=== PATIENT | female | born 1965 | race Two or more races ===

== ENCOUNTER 2020-02-18 14:50 | Emergency (ER) | payer MEDICAID, SELFPAY ==
--- NOTE | 2020-02-18 15:07 | ED.HA ---
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 Limitations: no limitations History of Present Illness MD elicited complaint: headache and other (entire L side of body has parasthesias) Onset (ago): day(s) (3) Onset description: gradually Location: right, frontal and temporal Severity: moderate Quality & Timing: throbbing Exacerbating factors: none Relieving factors: nothing Context: occurred at rest Associated symptoms: tingling (L sided parasthesias) Treatments prior to arrival: none Related Data Allergies Allergy/AdvReac Type Severity Reaction Status Date / Time aspirin [ASA] Allergy Mild SWOLLEN Unverified 12/25/19 18:55 Review of Systems Review of Systems: Constitutional : No Fever, No Chills, No Fatigue ENT/Mouth : No sore throat, No Rhinorrhea Eyes: No Eye Pain, No Swelling, No Redness Cardiovascular : No Chest Pain, No SOB, No Dyspnea on Exertion Respiratory : No Cough, No Sputum Gastrointestinal : No Nausea, No Vomiting, No Diarrhea, No abdominal Pain Genitourinary : No Dysuria, No Urinary Frequency, No Hematuria, Musculoskeletal : No joint pain, No Myalgias, No Joint Swelling Skin : No Skin Lesions, No rash Neuro : No Weakness, No Numbness, No Dizziness, positive Headache Psych : No Anxiety/Panic, No Depression Heme/Lymph: No Bruising, No Bleeding,No Lymphadenopathy Endocrine : No Polyuria, No Polydipsia All other systems reviewed and are negative PMFSH Past Medical History Attestation statement: The following information was validated with the patient. Medical History HTN (hypertension) Social History Social History Alcohol intake: never Smoking Status: Never smoker Use of substances other than those prescribed or required for medical reasons: No Advance Directives: No Advance Directives Information Provided: Yes Physical Exam Vital Signs: Vital Signs: Last Vital Signs Temp 98 F 02/18/20 15:29 Pulse 96 02/18/20 15:29 Resp 16 02/18/20 15:29 BP 159/90 H 02/18/20 15:29 Pulse Ox 99 02/18/20 15:29 Body Mass Index 43.9 Appearance: Alert. Oriented X3. No acute distress. talking on phone smiling Eyes: Pupils equal, round and reactive to light. ENT: Pharynx normal. Neck: Normal inspection. Neck supple. CVS: Normal heart rate and rhythm. Pulses normal. Respiratory: No respiratory distress. Breath sounds normal. Abdomen: Soft and nontender. Skin: Skin warm and dry. Normal skin color. Normal skin turgor. Extremities: No lower extremity edema. No calf ttp Neuro: Oriented X 3. No motor deficit. reports feeling the L side of her body is more diminished to light touch. CN intact Course Course Course Narrative: signed out to Dr. Harry pending workup MDM - Headache MDM Narrative Medical decision making narrative: 54 yo female with HTN no AC therapy 3 days of headache and L sided parasthesias at this time will need labs, CT head, IV morphine for pain could be complex migraine, doubt ICH, dispo per results and findings. Lab Data Result diagrams: 02/18/20 16:13 02/18/20 16:13 Labs: Lab Results 02/18/20 Range/Units 16:13 Hold Blue Top SEE NOTE Discharge Plan Discharge Clinical Impression: Headache
[2020-02-18 15:27] VITALS: BP 159/90; PULSE 63; RESP 16; TEMP 36.6; O2SAT 99; BMI 43.9
[2020-02-18 15:29] VITALS: BP 159/90; PULSE 96; RESP 16; TEMP 36.6; O2SAT 99
--- NOTE | 2020-02-18 15:29 | ECG_ITS ---
Test Reason : HEADAHCE Blood Pressure : / mmHG Vent. Rate : 056 BPM Atrial Rate : 056 BPM P-R Int : 156 ms QRS Dur : 104 ms QT Int : 436 ms P-R-T Axes : 038 -33 012 degrees QTc Int : 420 ms Sinus bradycardia with sinus arrhythmia Left axis deviation Abnormal ECG No previous ECGs available Referred By: Erin Crews Electronically Signed By:NIKO PRADO MD
--- NOTE | 2020-02-18 15:30 | CT_ITS ---
EXAMINATION: CT HEAD WITHOUT CONTRAST CLINICAL INFORMATION: Left-sided paresthesias and headache COMPARISON: None TECHNIQUE: Contiguous axial imaging was performed from the skull base to vertex without intravenous administration of contrast. This CT examination was performed using dose optimization techniques as appropriate, variously including the following: *Automated exposure control *Adjustment of mA and/or kV according to patient size (this includes techniques or standardized protocols for targeted exams where dose is matched to indication/reason for exam; i.e. extremities or head) *Use of iterative reconstruction technique DLP: 845 mGy-cm FINDINGS: There is no evidence of acute intracranial hemorrhage or territorial infarction. No abnormal mass effect or midline shift is seen. Cervantes to white matter differentiation is well preserved. No extra-axial fluid collections are identified. The ventricles are normal in size. There is no abnormal attenuation within the brain parenchyma. The osseous structures and soft tissues are normal. There is a small polyp or cyst in the floor of the right maxillary sinus. The mastoid air cells and visualized portions of the paranasal sinuses are otherwise clear. CT/CT head/brain wo con IMPRESSION: No acute intracranial findings.
[2020-02-18] MEDS: ondansetron HCL 4 MG/2 ML VIAL IVPUSH (16:22)
[2020-02-18] MEDS: Morphine Sulfate 4 MG/ML CARTRIDGE IVPUSH (16:22)
[2020-02-18 16:27] LABS: MANUAL DIFF FLAG NO
[2020-02-18 16:32] LABS: Basophils Percent Auto 0.3 % (0-2); Eosinophils Absolute Auto 0.1 X10*3/uL (0.0-0.4); Eosinophils Percent Auto 1.2 % (0-4); Hematocrit 41.6 % (37-47); Imm Gran Abs Auto 0.04 X10*3/uL (0.00-0.03); Imm Gran Pct Auto 0.4 % (0.0-0.4); Lymphocytes Absolute Auto 3.4 X10*3/uL (1.2-4.9); Lymphocytes Percent Auto 34.7 % (20-40); Mean Corpuscular HGB Conc 31.3 g/dl (31.0-35.0); Mean Corpuscular Hemoglobin 29.6 pg (27.0-33.0); Mean Corpuscular Volume 94.8 fL (80-98); Mean Platelet Volume 9.5 fL (9.4-12.3); Monocytes Absolute Auto 0.6 X10*3/uL (0.1-1.2); Monocytes Percent Auto 6.3 % (2-11); Neutrophils Absolute Auto 5.7 X10*3/uL (2.0-8.3); Neutrophils Percent Auto 57.1 % (45-73); Platelet Count 278 X10*3/uL (160-400); Red Blood Count 4.39 X10*6/uL (4.20-5.50); White Blood Count 9.9 X10*3/uL (4.8-10.8)
[2020-02-18 17:04] LABS: Alanine Aminotransferase 16 U/L (0-31); Albumin Level 4.2 g/dL (3.5-5.0); Alkaline Phosphatase 102 U/L (39-117); Aspartate Amino Transferase 24 U/L (5-31); Bilirubin Direct < 0.2 mg/dL (0.0-0.5); Bilirubin Total 0.4 mg/dL (0.0-1.0); Magnesium 1.9 mg/dL (1.6-2.6); Total Protein 7.9 g/dL (6.5-8.0)
[2020-02-18 17:05] LABS: Anion Gap 16 (12-20); Blood Urea Nitrogen 12 mg/dL (9-16); Carbon Dioxide 28 mmol/L (22-29); Chloride 101 mmol/L (96-108); Creatinine Clr Calc Pharmacy 99.2; Estimated Glomerular Filt Rate > 60; Glucose Random 88 mg/dL (60-115); Potassium 3.9 mmol/l (3.3-5.1); Sodium 141 mmol/L (135-145)
[2020-02-18 18:00] VITALS: BP 146/79; PULSE 60; RESP 16; TEMP 36.3; O2SAT 99
--- NOTE | 2020-02-18 19:22 | ED_ITS ---
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 Limitations: no limitations Related Data Allergies Allergy/AdvReac Type Severity Reaction Status Date / Time aspirin [ASA] Allergy Mild SWOLLEN Unverified 12/25/19 18:55 [facility] Past Medical History Medical History HTN (hypertension) Social History Social History Alcohol intake: never Smoking Status: Never smoker Use of substances other than those prescribed or required for medical reasons: No Advance Directives: No Advance Directives Information Provided: Yes Physical Exam Vital Signs: Vital Signs: Last Vital Signs Temp 97.4 F 02/18/20 18:00 Pulse 60 02/18/20 18:00 Resp 16 02/18/20 18:00 BP 146/79 H 02/18/20 18:00 Pulse Ox 99 02/18/20 18:00 Body Mass Index 43.9 Medical Decision Making [facility] Narrative Medical decision making narrative: Patient well appearing no acute distress. Neurologically intact. ambulate with normal gait. Patient was able to use her left hand to text her family. No distress. Finger to nose completely intact. Negative Romberg. Will discharge patient home. CT scan of the head was grossly negative. NIH stroke scale was 0. Lab Data Result diagrams: 02/18/20 16:13 02/18/20 16:13 Labs: Lab Results 02/18/20 02/18/20 02/18/20 Range/Units 16:13 16:13 16:13 WBC 9.9 (4.8-10.8) X10*3/uL RBC 4.39 (4.20-5.50) X10*6/uL Hgb 13.0 (12.0-16.0) g/dl Hct 41.6 (37-47) % MCV 94.8 (80-98) fL MCH 29.6 (27.0-33.0) pg MCHC 31.3 (31.0-35.0) g/dl RDW 13.0 (11.0-16.0) % Plt Count 278 (160-400) X10*3/uL MPV 9.5 (9.4-12.3) fL Immature Gran % (Auto) 0.4 (0.0-0.4) % Neut % (Auto) 57.1 (45-73) % Lymph % (Auto) 34.7 (20-40) % [place] % (Auto) 6.3 (2-11) % Eos % (Auto) 1.2 (0-4) % Baso % (Auto) 0.3 (0-2) % Lymph # (Auto) 3.4 (1.2-4.9) X10*3/uL [place] # (Auto) 0.6 (0.1-1.2) X10*3/uL Eos # (Auto) 0.1 (0.0-0.4) X10*3/uL Baso # (Auto) 0.0 (0.0-0.2) X10*3/uL Abs Immat Gran (auto) 0.04 H (0.00-0.03) X10*3/uL Absolute Neuts (auto) 5.7 (2.0-8.3) X10*3/uL Absolute Nucleated RBC 0.000 (0.0-0.012) X10*3/uL Nucleated RBC % (auto) 0.0 (0.0-0.2) /100WBC Hold Blue Top SEE NOTE Sodium 141 (135-145) mmol/L Potassium 3.9 (3.3-5.1) mmol/l Chloride 101 (96-108) mmol/L Carbon Dioxide 28 (22-29) mmol/L Anion Gap 16 (12-20) BUN 12 (9-16) mg/dL Creatinine 0.90 (0.5-1.4) mg/dL Estim Creat Clear Calc 99.2 Estimated GFR > 60 Random Glucose 88 (60-115) mg/dL Calcium 9.0 (8.4-10.2) mg/dL Magnesium (1.6-2.6) mg/dL Total Bilirubin (0.0-1.0) mg/dL Direct Bilirubin (0.0-0.5) mg/dL AST (5-31) U/L ALT (0-31) U/L Alkaline Phosphatase (39-117) U/L Total Protein (6.5-8.0) g/dL Albumin (3.5-5.0) g/dL 02/18/20 Range/Units 16:13 WBC (4.8-10.8) X10*3/uL RBC (4.20-5.50) X10*6/uL Hgb (12.0-16.0) g/dl Hct (37-47) % MCV (80-98) fL MCH (27.0-33.0) pg MCHC (31.0-35.0) g/dl RDW (11.0-16.0) % Plt Count (160-400) X10*3/uL MPV (9.4-12.3) fL Immature Gran % (Auto) (0.0-0.4) % Neut % (Auto) (45-73) % Lymph % (Auto) (20-40) % [place] % (Auto) (2-11) % Eos % (Auto) (0-4) % Baso % (Auto) (0-2) % Lymph # (Auto) (1.2-4.9) X10*3/uL [place] # (Auto) (0.1-1.2) X10*3/uL Eos # (Auto) (0.0-0.4) X10*3/uL Baso # (Auto) (0.0-0.2) X10*3/uL Abs Immat Gran (auto) (0.00-0.03) X10*3/uL Absolute Neuts (auto) (2.0-8.3) X10*3/uL Absolute Nucleated RBC (0.0-0.012) X10*3/uL Nucleated RBC % (auto) (0.0-0.2) /100WBC Hold Blue Top Sodium (135-145) mmol/L Potassium (3.3-5.1) mmol/l Chloride (96-108) mmol/L Carbon Dioxide (22-29) mmol/L Anion Gap (12-20) BUN (9-16) mg/dL Creatinine (0.5-1.4) mg/dL Estim Creat Clear Calc Estimated GFR Random Glucose (60-115) mg/dL Calcium (8.4-10.2) mg/dL Magnesium 1.9 (1.6-2.6) mg/dL Total Bilirubin 0.4 (0.0-1.0) mg/dL Direct Bilirubin < 0.2 (0.0-0.5) mg/dL AST 24 (5-31) U/L ALT 16 (0-31) U/L Alkaline Phosphatase 102 (39-117) U/L Total Protein 7.9 (6.5-8.0) g/dL Albumin 4.2 (3.5-5.0) g/dL Discharge Plan Discharge Clinical Impression: Headache Qualifiers: Headache type: unspecified Headache chronicity pattern: acute headache Intractability: not intractable Qualified Code(s): R51.9 - Headache, unspecified Patient Disposition: Home, Self-Care Instructions: Paresthesia (ED) Referrals: Carlene Aggarwal MD [Primary Care Provider] - 2 days Print Language: Maltese
== END 2020-02-18 20:20 | disposition home or self-care (01) ==
PROVIDERS: Emergency Medicine; Emergency Provider Emergency Medicine Emergency Medical Services; PCP Internal Medicine
DX: R51.9 Headache, unspecified (principal)
CPT/HCPCS: 36415; 70450; 80048; 80076; 83735; 85025; 93005; 96374; 96375; 99284; J2270; J2405

== ENCOUNTER 2021-09-29 11:00 | Outpatient (REF) | payer MEDICAID, SELFPAY ==
--- NOTE | ~2021-09-29 | MM_ITS ---
EXAMINATION: MM SCREENING DIGITAL BREAST TOMOSYNTHESIS, BILATERAL CLINICAL INFORMATION: Screening. Asymptomatic. The lifetime risk of breast cancer based on the Tyrer-Cuzick Model is 6.7%. COMPARISON: Mammography: August 20, 2017 and September 13, 2015 TECHNIQUE: Digital breast tomosynthesis is performed in both the craniocaudal and mediolateral oblique views along with computer-aided detection (CAD). Synthesized 2D images are generated from the tomosynthesis. FINDINGS: There are scattered areas of fibroglandular density (ACR BI-RADS breast composition Category b). There are no significant masses, abnormal calcifications, or other abnormalities. MM/MM tomosynthesis screening BI IMPRESSION: There are no significant changes from prior study. ASSESSMENT: BI-RADS 1: Negative RECOMMENDATION: Routine annual mammography screening. This patient's information was entered into a reminder system with a target due date for their next mammogram.
== END 2021-09-29 11:01 | disposition home or self-care (01) ==
LOC: HO.MAMMO 11:00
PROVIDERS: PCP Internal Medicine; Visit Provider Internal Medicine
DX: Z12.31 Encounter for screening mammogram for malignant neoplasm of breast (principal)
CPT/HCPCS: 77063; 77067

== ENCOUNTER 2021-10-06 12:21 | Outpatient (REF) | payer MEDICAID, SELFPAY ==
--- NOTE | ~2021-10-06 | XR_ITS ---
EXAMINATION: XR KNEES, STANDING AP XR KNEE, RIGHT XR KNEE, LEFT CLINICAL INFORMATION: Knee pain COMPARISON: Outside radiographs bilateral knees 11/01/2020 ([facility]) TECHNIQUE: Standing AP view of both knees is performed. Each knee is also imaged in lateral and axial patella views. FINDINGS: Right: There is moderate tricompartment osteoarthritis, greatest medial compartment with secondary genu varus. There are moderate osteophytes medial and lateral femoral condyles and tibial plateau and superior lateral patella. No destructive process, fracture, dislocation. No definite suprapatellar effusion. There is spurring at the quadriceps insertion patella. Hoffa's fat pad unremarkable. Borderline lateral patellar tilt without lateralization. Left: There is moderate tricompartment osteoarthritis, greatest medial compartment with secondary genu varus. There are moderate osteophytes medial and lateral femoral condyles and tibial plateau and lateral patella. There is a small benign rectangular exostosis of the superior aspect medial femoral condyle similar to outside exam. No soft tissue mineralization. No periostitis. No destructive process, fracture, dislocation. No suprapatellar effusion. There is spurring at the quadriceps insertion patella. Hoffa's fat pad unremarkable. Borderline lateral patellar tilt without lateralization. 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 -No definite suprapatellar effusion. No erosive changes. -Borderline lateral tilting bilateral patella.
--- NOTE | ~2021-10-06 | XR_ITS ---
EXAMINATION: XR KNEES, STANDING AP XR KNEE, RIGHT XR KNEE, LEFT CLINICAL INFORMATION: Knee pain COMPARISON: Outside radiographs bilateral knees 11/01/2020 ([facility]) TECHNIQUE: Standing AP view of both knees is performed. Each knee is also imaged in lateral and axial patella views. FINDINGS: Right: There is moderate tricompartment osteoarthritis, greatest medial compartment with secondary genu varus. There are moderate osteophytes medial and lateral femoral condyles and tibial plateau and superior lateral patella. No destructive process, fracture, dislocation. No definite suprapatellar effusion. There is spurring at the quadriceps insertion patella. Hoffa's fat pad unremarkable. Borderline lateral patellar tilt without lateralization. Left: There is moderate tricompartment osteoarthritis, greatest medial compartment with secondary genu varus. There are moderate osteophytes medial and lateral femoral condyles and tibial plateau and lateral patella. There is a small benign rectangular exostosis of the superior aspect medial femoral condyle similar to outside exam. No soft tissue mineralization. No periostitis. No destructive process, fracture, dislocation. No suprapatellar effusion. There is spurring at the quadriceps insertion patella. Hoffa's fat pad unremarkable. Borderline lateral patellar tilt without lateralization. 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 -No definite suprapatellar effusion. No erosive changes. -Borderline lateral tilting bilateral patella.
--- NOTE | ~2021-10-06 | XR_ITS ---
EXAMINATION: XR KNEES, STANDING AP XR KNEE, RIGHT XR KNEE, LEFT CLINICAL INFORMATION: Knee pain COMPARISON: Outside radiographs bilateral knees 11/01/2020 ([facility]) TECHNIQUE: Standing AP view of both knees is performed. Each knee is also imaged in lateral and axial patella views. FINDINGS: Right: There is moderate tricompartment osteoarthritis, greatest medial compartment with secondary genu varus. There are moderate osteophytes medial and lateral femoral condyles and tibial plateau and superior lateral patella. No destructive process, fracture, dislocation. No definite suprapatellar effusion. There is spurring at the quadriceps insertion patella. Hoffa's fat pad unremarkable. Borderline lateral patellar tilt without lateralization. Left: There is moderate tricompartment osteoarthritis, greatest medial compartment with secondary genu varus. There are moderate osteophytes medial and lateral femoral condyles and tibial plateau and lateral patella. There is a small benign rectangular exostosis of the superior aspect medial femoral condyle similar to outside exam. No soft tissue mineralization. No periostitis. No destructive process, fracture, dislocation. No suprapatellar effusion. There is spurring at the quadriceps insertion patella. Hoffa's fat pad unremarkable. Borderline lateral patellar tilt without lateralization. 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 -No definite suprapatellar effusion. No erosive changes. -Borderline lateral tilting bilateral patella.
== END 2021-10-06 12:22 | disposition home or self-care (01) ==
LOC: HO.HOSX 12:21
PROVIDERS: Visit Provider Orthopaedic Surgery
DX: M25.561 Pain in right knee (principal); M25.562 Pain in left knee; M17.0 Bilateral primary osteoarthritis of knee
CPT/HCPCS: 73560; 73565; 99202

== ENCOUNTER → 2022-04-18 15:01 | Outpatient (BNVA) | payer MEDICAID, SELFPAY | PROVIDERS: PCP Internal Medicine; Visit Provider Surgery Vascular Surgery | DX: I83.11 Varicose veins of right lower extremity with inflammation (principal) | CPT/HCPCS: 99212 ==

== ENCOUNTER 2022-05-12 12:41 | Outpatient (REF) | payer MEDICAID, SELFPAY ==
--- NOTE | ~2022-05-12 | US_ITS ---
EXAMINATION: US VENOUS BILATERAL LOWER EXTREMITIES (REFLUX EXAM) CLINICAL INDICATION: Leg pain and varicose veins. COMPARISON: None TECHNIQUE: Color flow triplex imaging and compression Doppler was performed to evaluate both the deep and the superficial systems bilaterally. To evaluate the superficial system, the examination was performed in the upright position. Color-flow Doppler ultrasound and compression ultrasound were utilized. In addition, maneuvers were utilized to demonstrate reflux. FINDINGS: 1. DEEP VENOUS ULTRASOUND OF THE RIGHT LOWER EXTREMITY: Respiratory variation, normal compression and augmented flow are noted in the right common femoral vein as well as the right popliteal vein and there is no evidence of deep venous thrombosis at these locations. There is no evidence of reflux in the deep system in either the common femoral vein or the popliteal vein. There is no evidence of a Elise's cyst. 2. SUPERFICIAL ULTRASOUND WITH DOPPLER OF RIGHT LOWER EXTREMITY: The right great saphenous vein at the saphenofemoral junction measures 8 mm, at the proximal thigh 10 mm, at the mid thigh 4 mm, above the knee 4 mm, at the knee 3 mm, [id number] 3 mm, midcalf 2 mm and at the ankle measures 2 mm. Reflux is present in the right great saphenous vein from [id number] to [id number] with reflux times as great as 0.9 seconds. The great saphenous vein is duplicated around the level of the knee measuring about 5 mm in diameter. Duplicated Right Great Saphenous Vein: The great saphenous vein is partially duplicated with a lateral branch measuring 3 mm without reflux. The right small saphenous vein measures 2 mm and shows no reflux. Accessory Vein of Giacomini: None Incompetent Perforators: None Varices Present: Varicosities measuring 0.2 cm in the distal thigh are noted. 3. DEEP VENOUS ULTRASOUND OF THE LEFT LOWER EXTREMITY: Respiratory variation, normal compression and augmented flow are noted in the left common femoral vein as well as the left popliteal vein and there is no evidence of deep venous thrombosis at these locations. There is no evidence of reflux in the deep system in either the common femoral vein or the popliteal vein. There is no evidence of a Elise's cyst. 4. SUPERFICIAL ULTRASOUND WITH DOPPLER OF LEFT LOWER EXTREMITY: Left great saphenous vein at the saphenofemoral junction measures 8 mm, at the proximal thigh 7 mm, at the mid thigh 3 mm, above the knee 3 mm, at the knee 3 mm, [id number] 3 mm, midcalf 2 mm and at the ankle measures 2 mm. 0.9 seconds of reflux is present below the knee. Duplicated Left Great Saphenous Vein: There is a 4 mm lateral accessory saphenous that does not reflux. The left small saphenous vein measures 2 mm and shows no reflux. Accessory Vein of Giacomini: None Incompetent Perforators: None. Varices Present: 0.4 cm diameter varices are noted in the proximal thigh. US/US venous duplex LE BI IMPRESSION: 1. No evidence of reflux or thrombus in the deep venous systems bilaterally. 2. Reflux in the right great saphenous vein from [id number] to below the knee. 3. Reflux in the left great saphenous vein below the knee.
== END 2022-05-12 12:42 | disposition home or self-care (01) ==
LOC: HO.US 12:41
PROVIDERS: PCP Internal Medicine; Visit Provider Surgery Vascular Surgery
DX: I83.893 Varicose veins of bilateral lower extremities with other complications (principal)
CPT/HCPCS: 93970

== ENCOUNTER → 2022-06-01 13:29 | Outpatient (BNVA) | payer MEDICAID, SELFPAY | PROVIDERS: PCP Internal Medicine; Visit Provider Surgery Vascular Surgery | DX: I83.11 Varicose veins of right lower extremity with inflammation (principal); I89.0 Lymphedema, not elsewhere classified | CPT/HCPCS: 99212 ==

== ENCOUNTER 2022-08-31 10:52 | Outpatient (REF) | payer MEDICAID, SELFPAY ==
[2022-09-06 21:14] LABS: HPV mRNA E6/E7 rflx Not Detected (Not Detected)
== END 2022-08-31 10:53 | disposition home or self-care (01) ==
LOC: HO.LNP 10:52
PROVIDERS: PCP Internal Medicine; Visit Provider Obstetrics & Gynecology
DX: Z01.419 Encounter for gynecological examination (general) (routine) without abnormal findings (principal); Z11.51 Encounter for screening for human papillomavirus (HPV); R31.29 Other microscopic hematuria
CPT/HCPCS: 87086; 87624; 88142

== ENCOUNTER → 2022-09-21 12:21 | Outpatient (BNVA) | payer MEDICAID, SELFPAY | PROVIDERS: PCP Internal Medicine; Visit Provider Obstetrics & Gynecology | DX: R31.29 Other microscopic hematuria (principal) | CPT/HCPCS: 81003; 99212 ==

== ENCOUNTER 2022-10-30 10:02 | Outpatient (REF) | payer MEDICAID, SELFPAY ==
[2022-10-30 16:59] LABS: Urine Cytology See Pathology rpt
== END 2022-10-30 10:03 | disposition home or self-care (01) ==
LOC: HO.LNP 10:02
PROVIDERS: PCP Internal Medicine; Visit Provider Nurse Practitioner Family
DX: R31.29 Other microscopic hematuria (principal)
CPT/HCPCS: 88112; 99203

== ENCOUNTER 2022-10-30 10:02 | Outpatient (AMB) | payer MEDICAID, SELFPAY ==
--- NOTE | 2022-10-30 10:08 | MHC.OFFVIS ---
Intake Intake Visit Reasons: microscopic hematuria Intake Note: New Patient presents for micro hematuria Urology Medications: none Blood Thinner: none smoker: no, quit 12yrs ago Full Stack Software Developer Required: No Accompanied by: Self / Same As Patient Allergies aspirin [ASA] Allergy (Mild, Verified 10/30/22 11:37) SWOLLEN Medication List - Last Reconciled 10/30/22 by LONA Abarca albuterol sulfate 90 mcg/actuation (ProAir HFA) 2 puffs PO Q4-6H PRN chlorthalidone 50 mg PO DAILY ustekinumab (Stelara) 90 mg subcut Q12W HPI HPI Comments History of Present Illness Details Rika is a very pleasant 57-year-old female patient of Dr. Kiki Quintana. She has a past medical history of hypertension, edema, and osteoarthritis of bilateral knees. She presents to the office today as a new patient for microscopic hematuria. In discussion with the patient today she reports to be doing and feeling well. She reports previously following up with her PCP for annual appointment at which time she was noted to have microscopic hematuria in given her history of nicotine dependence was referred here for further assessment evaluation. When asked patient reports have quit smoking approximately 12 years ago. However reports to have smoked approximately 2 packs of cigarettes per day since the early age of 88 years old until she was 45 years old. She otherwise denies any known previous chemical exposure. When asked she does report very infrequent episodes of abdominal pressure. He otherwise denies denies urinary urgency, urinary frequency, incontinence, nocturia, hematuria, dysuria, foul smelling urine, changes to urinary stream, flank pain, fever, and or chills. She is happy with her current voiding parameters. She denies any previous history of nephrolithiasis. Discussed at length potential causes for microscopic hematuria. Discussed surveillance monitoring verses further microscopic hematuria workup to include urine cytology, CT urogram, and in office cystoscopy for further assessment evaluation. Risks and benefits of surveillance monitoring verses further microscopic hematuria workup discussed at length. She otherwise offers no issues or concerns at this time. In office urinalysis results reviewed with the patient today. PFSH Medical History ASCUS of cervix with negative high risk HPV HTN (hypertension) Family History Maternal Aunt Cervical cancer Maternal Aunt Cervical cancer Mother Cervical cancer Brother Prostate cancer Social History Alcohol intake: never Patient Tobacco Use Status: Former Tobacco user Quit Date: 2010 Current occupational status: unemployed Female Reproductive History Menstrual Age of Menarche: 5 Review of Systems Eyes Reports no additional complaints ENT Reports no additional complaints Card Reports as per HPI Resp Reports no additional complaints GI Reports no additional complaints Reports as per HPI Musc Reports as per HPI Neuro Reports no additional complaints Psych Reports no additional complaints Endo Reports no additional complaints Jeffery/Lymph Reports no additional complaints Aller/Immun Reports no additional complaints Physical Exam Const General: cooperative, healthy appearing, comfortable, no acute distress, well developed, alert and awake Nutritional Appearance: overweight Orientation/consciousness: patient oriented x3 Limitations: ambulation with cane HEENT Head: Yes normal to inspection, Yes normocephalic and Yes atraumatic Ears: hearing grossly normal bilaterally Eyes General: appearance normal, both eyes and all related structures Neck Neck: Yes normal visual inspection and Yes trachea midline Chest Chest palpation & inspection: normal inspection of the chest Resp Effort & Inspection: normal respiratory effort and able to speak in complete sentences Cardio Rate: regular rate GI Inspection: Yes normal to inspection General: Yes no CVA tenderness Back/Spine/Pelvis Back: no CVA tenderness Skin General skin exam: no rashes or lesions noted Neuro General: patient oriented x3 Extrem General: Yes normal to inspection Psych Appearance: grossly normal and well kempt Mental Status: mental status grossly normal Speech and movement: Normal speech and movement present and Clear speech present Affect: normal affect Attitude: cooperative Thought process: Normal thought process present Thought content: Normal thought content present Insight: Fair insight present (Psych) Judgement: Fair judgement present (Psych) Results AMB Urinalysis, Automated UA Leukoctes 0 Denia/uL Last Edit by Emory Valdovinos on 10/30/22 10:24 UA Nitrite Last Edit by Emory Valdovinos on 10/30/22 10:24 UA Urobilinogen 0.2 mg/dL Last Edit by Emory Valdovinos on 10/30/22 10:24 UA Protein 30 mg/dL Last Edit by Emory Valdovinos on 10/30/22 10:24 UA pH 6.0 Last Edit by Emory Valdovinos on 10/30/22 10:24 UA Blood 25 Benito/uL Last Edit by Emory Valdovinos on 10/30/22 10:24 UA Specific [place] 1.030 Last Edit by Emory Valdovinos on 10/30/22 10:24 UA Ketone Last Edit by Emory Valdovinos on 10/30/22 10:24 UA Bilirubin 1 mg/dL Last Edit by Emory Valdovinos on 10/30/22 10:24 UA Glucose 0 mg/dL Last Edit by Emory Valdovinos on 10/30/22 10:24 Results Reviewed Results Reviewed: Laboratory Last Values Urine pH (Auto) 6.0 10/30/22 10:17 Specific [place] (Auto) 1.030 10/30/22 10:17 Urine Protein (Auto) 30 mg/dL 10/30/22 10:17 Glucose (UA)(Auto) 0 mg/dL 10/30/22 10:17 Urine Blood (Auto) 25 Benito/uL 10/30/22 10:17 Urine Bilirubin (Auto) 1 mg/dL 10/30/22 10:17 Urine Urobilinogen (Auto) 0.2 mg/dL 10/30/22 10:17 Leukocyte Esterase (Auto) 0 Denia/uL 10/30/22 10:17 Assessment & Plan Assessment & Plan (1) Microscopic hematuria: Code(s): R31.29 - Other microscopic hematuria Plan In office urinalysis results reviewed with the patient today; as noted above; will send for urine cytology Patient with previous nicotine dependence for approximately 35 years however quit 12 years ago. Discussed at length surveillance monitoring verses further microscopic hematuria workup; discussed risks and benefits of surveillance monitoring verses further workup Will obtain CT urogram for further assessment evaluation Patient reports be happy with current voiding parameters Discussed at length potential causes for microscopic hematuria Educated, encouraged, and instructed on the importance of drinking plenty of water daily. Follow up in office cystoscopy with imaging to be completed prior; or sooner with any issues, concerns, and or questions Orders: Orders Urine Cytology Today R31.29 - Other microscopic hematuria CT urogram Today R31.29 - Other microscopic hematuria Blood Urea Nitrogen Today R39.15 - Urgency of urination Creatinine Today R39.15 - Urgency of urination AMB Urinalysis Automated Today Z13.9 - Encounter for screening, unspecified Patient Instructions: The patient had an opportunity to ask questions regarding the treatment plan. All questions were answered. Physical exam, labs, and imaging were discussed and reviewed in detail. As well as risks, benefits, and discussion of treatment choices. No major barriers to understanding were identified. The patient expressed understanding and agreement with the above treatment plan. The patient was made aware they should contact our office by phone for worsening of their current condition, the appearance of new symptoms, or with any questions or concerns. Compliance is encouraged with any medications and follow up testing that is ordered. It is a privilege to be allowed the opportunity to participate in? your urological care.? Again, if you have any questions or concerns If you have any questions or concerns please do not hesitate to contact me. The office is [phone]. This note is constructed using voice recognition software. While every effort has been made to ensure accuracy purse framer errors may have been included. Yours sincerely, LNOA Abarca Coding Level of Care Code New Pt Level 3 (22587) Diagnoses Microscopic hematuria R31.29
== END 2022-10-30 10:33 | disposition home or self-care (01) ==
PROVIDERS: PCP Internal Medicine; Visit Provider Nurse Practitioner Family
DX: R31.29 Other microscopic hematuria (principal)
CPT/HCPCS: 99203

== ENCOUNTER 2022-11-03 12:04 | Outpatient (REF) | payer MEDICAID, SELFPAY ==
[2022-11-03 13:20] LABS: Blood Urea Nitrogen 10 mg/dL (9-16); Estimated Glomerular Filt Rate > 60
== END 2022-11-03 12:05 | disposition home or self-care (01) ==
LOC: HO.LAB 12:04
PROVIDERS: PCP Internal Medicine; Visit Provider Nurse Practitioner Family
DX: R39.15 Urgency of urination (principal)
CPT/HCPCS: 36415; 82565; 84520

== ENCOUNTER 2022-11-27 10:00 | Outpatient (REF) | payer MEDICAID, SELFPAY ==
--- NOTE | ~2022-11-27 | CT_ITS ---
EXAMINATION: CT ABDOMEN AND PELVIS WITHOUT AND WITH CONTRAST CLINICAL INFORMATION: Microscopic hematuria COMPARISON: None available. TECHNIQUE: Noncontrast CT of the abdomen and pelvis is performed followed by split bolus contrast-enhanced images using 85 mL Omnipaque 350 contrast.? Postcontrast imaging is performed during the combined nephrogram and excretion phase. Sagittal and coronal reformatted images were obtained on the technologist's workstation for both the precontrast and postcontrast phases. This CT examination was performed using dose optimization techniques as appropriate, variously including the following: *Automated exposure control *Adjustment of mA and/or kV according to patient size (this includes techniques or standardized protocols for targeted exams where dose is matched to indication/reason for exam; i.e. extremities or head) *Use of iterative reconstruction technique DLP: 1337 mGy-cm FINDINGS: SITE PHYSICIAN: Nonobstructive bowel pattern. LUNG BASES: Heart size within normal limits. No pericardial effusion. Right lower lobe atelectasis. LIVER, GALLBLADDER, AND BILIARY TREE: The diffuse hypoattenuation to the liver parenchyma resistive focal fatty sparing at gallbladder fossa. No focal hepatic lesion or biliary ductal dilatation is present. The gallbladder is unremarkable with no evidence of radiopaque gallstones, gallbladder wall thickening, or obvious pericholecystic inflammatory changes. PANCREAS: Unremarkable. SPLEEN: Unremarkable. ADRENAL GLANDS: 2.1 cm left lipid rich adenoma. KIDNEYS AND URETERS: The right kidney measures 11.9 cm in longest sagittal projection, left kidney measures 10.3 cm. No renal, ureteral or bladder calculi. No hydroureteronephrosis. No perinephric stranding. No filling defects identified in the intrarenal collecting systems or tortuous contrast-filled ureters. BLADDER: Inferior aspect of the urinary bladder is mildly irregular. GASTROINTESTINAL TRACT: Decompressed stomach. Nonobstructive bowel pattern. Unremarkable terminal ileum and appendix. Diverticulosis without diverticulitis. ABDOMINAL WALL: No significant hernia is appreciated. LYMPH NODES: Normal. VASCULAR: Unremarkable. PELVIC VISCERA: Unremarkable. OSSEUS STRUCTURES: Symphysis pubis sclerosis. Mild anterolisthesis L4 on L5. L5-S1 disc space narrowing. CT/CT urogram IMPRESSION: Mildly irregular inferior urinary bladder wall, possible cystitis. Correlate with urinalysis. Diverticulosis without diverticulitis. Hepatic steatosis.
[2022-11-27] MEDS: iohexoL 350 MG/ML 100 ML INFUS..BTL 85 ML IV (12:17)
== END 2022-11-27 10:01 | disposition home or self-care (01) ==
LOC: HO.CT 10:00
PROVIDERS: PCP Internal Medicine; Visit Provider Nurse Practitioner Family
DX: R31.29 Other microscopic hematuria (principal)
CPT/HCPCS: 74178; Q9967

== ENCOUNTER 2022-12-06 10:12 | Outpatient (AMB) | payer MEDICAID, SELFPAY ==
--- NOTE | 2022-12-06 04:49 | MHC.OFFVIS ---
Intake Intake Visit Reasons: cysto/CT Intake Note: Patient presents today for a CYSTOSCOPY Procedure/CT Completed on 11/27/2022 Meds: None Allergies to Antibiotic: No Known Allergies Blood Thinner: None Urinalysis test cleared for Cysto Disposable Uro-G Cystoscope Cannula: Lot: [id number] Exp: 08/16/2024 Senior Program Planner Required: No Accompanied by: Self / Same As Patient Allergies aspirin [ASA] Allergy (Mild, Verified 12/06/22 10:21) SWOLLEN HPI HPI Comments History of Present Illness Details Rika is a 57-year-old female who presents today to the office for a follow-up. 12/06/2022? Rika is followed today for a cystoscopy procedure. She has a past medical history of hypertension, edema, and osteoarthritis of bilateral knees. She has seen Nurse Practitioner Abdulaziz Longoria on 10/30/2022 for microscopic hematuria. The patient was instructed on the importance of drinking plenty of water daily at that time. CT urogram was ordered for further assessment evaluation, and she was advised to follow up in office cystoscopy with imaging to be completed prior. I have reviewed the CT urogram results from 11/27/2022 revealed mildly irregular inferior urinary bladder wall, possible cystitis. She has a history of cigarette smoking. She states that she has quit smoking 12 years ago. She states that she needs to push for emptying the bladder. She denies any recent urinary tract infections. She complains of urinary hesitency and feeling like she has to push to empty her bladder when urinating. Consent was obtained to perform cystoscopy procedure. Cystoscopy findings: Thickening of the bladder wall, no suspicious bladder lesions noted. Evaluation today--UA-- bladder scan PVR: 0 mL. Plan: alfusozin 10 mg daily was ordered. Follow up in 3 months. PFSH Medical History ASCUS of cervix with negative high risk HPV HTN (hypertension) Surgical History Hx of cystoscopy Family History Maternal Aunt Cervical cancer Maternal Aunt Cervical cancer Mother Cervical cancer Brother Prostate cancer Social History Alcohol intake: never Patient Tobacco Use Status: Former Tobacco user Quit Date: 2010 Current occupational status: unemployed Female Reproductive History Menstrual Age of Menarche: 5 Review of Systems Eyes Reports no additional complaints ENT Reports no additional complaints Card Reports as per HPI Resp Reports no additional complaints GI Reports no additional complaints Reports as per HPI Musc Reports as per HPI Neuro Reports no additional complaints Psych Reports no additional complaints Endo Reports no additional complaints Jeffery/Lymph Reports no additional complaints Aller/Immun Reports no additional complaints Office Procedures Cystoscopy Consent Discussed risk and benefit or proposed procedure with the patient. Information consent for procedure given to the patient. Discussed technical aspects, risks, benefits and alternatives in full. Addressed all of the patient's questions and concerns regarding the procedure. The patient demonstrated knowledge and understanding. They wish to proceed with this procedure. Preparation The patient was prepped in the usual manner. A heater installer was present and in the room. Genitalia was prepped with betadine solution in a sterile manner. Lidocaine Jelly 2% was placed into the urethra and 16Fr flexible Olympus cystoscope was inserted into the meatus after adequate lubrication. Procedure Time out per protocol performed. Bladder Inspection Bladder Inspection: The bladder was inspected in its entirety with utilization retroflexion displaying: Tumor(s): none visualized Trabeculation: mild to moderate Mucosal Erthema: N/A Orifices: normal shape and position Urethra: normal Cystoscopy findings: no suspicious bladder lesions visualized [id number] DISPOSABLE SCOPE URO-G FLEXIBLE SCOPE Procedure code (CPT) selection complete Office Meds lidocaine HCl 2 % mucosal jelly in applicator Performing Provider: Ana Ríos MD Performing Location: [facility] [place] [facility] Administered by: Kerry Alexis RN on 12/06/22 10:51 Dose Route Admin Location Dispensed Lot Number Expiration Date [facility] Social Work Program Coordinator 10 mL intra-urethral 20 mL naproxen 500 mg tablet Performing Provider: Ana Ríos MD Performing Location: [facility] [place] [facility] Administered by: Kerry Alexis RN on 12/06/22 10:51 Dose Route Admin Location Dispensed Lot Number Expiration Date [facility] Social Work Program Coordinator 500 mg PO 1 tab ciprofloxacin HCl 500 mg tablet Performing Provider: Ana Ríos MD Performing Location: [facility] [place] [facility] Administered by: Kerry Alexis RN on 12/06/22 10:51 Dose Route Admin Location Dispensed Lot Number Expiration Date [facility] Social Work Program Coordinator 500 mg PO 1 tab Results AMB Urinalysis, Automated UA Leukoctes 0 Denia/uL Last Edit by REUBEN Vazquez on 12/06/22 10:24 UA Nitrite Negative Last Edit by REUBEN Vazquez on 12/06/22 10:24 UA Urobilinogen 0.2 mg/dL Last Edit by REUBEN Vazquez on 12/06/22 10:24 UA Protein 15 mg/dL Last Edit by REUBEN Vazquez on 12/06/22 10:24 UA pH 5.0 Last Edit by Swanpa Sesay Daniel on 12/06/22 10:24 UA Blood 25 Benito/uL Last Edit by Swapna Sesay Daniel on 12/06/22 10:24 1+ Swapna Sesay 12/06/22 10:24 UA Specific [place] 1.030 Last Edit by REUBEN Vazquez on 12/06/22 10:24 UA Ketone Negative Last Edit by REUBEN Vazquez on 12/06/22 10:24 UA Bilirubin 0 mg/dL Last Edit by REUBEN Vazquez on 12/06/22 10:24 UA Glucose 0 mg/dL Last Edit by Swapna Sesay Daniel on 12/06/22 10:24 Results Reviewed Results Reviewed: Laboratory Last Values Urine pH (Auto) 5.0 12/06/22 10:23 Specific [place] (Auto) 1.030 12/06/22 10:23 Urine Protein (Auto) 15 mg/dL 12/06/22 10:23 Glucose (UA)(Auto) 0 mg/dL 12/06/22 10:23 Urine Ketones (Auto) Negative 12/06/22 10:23 Urine Blood (Auto) 25 Benito/uL 12/06/22 10:23 Urine Nitrite (Auto) Negative 12/06/22 10:23 Urine Bilirubin (Auto) 0 mg/dL 12/06/22 10:23 Urine Urobilinogen (Auto) 0.2 mg/dL 12/06/22 10:23 Leukocyte Esterase (Auto) 0 Denia/uL 12/06/22 10:23 Date of Service: 11/27/22 EXAMINATION: CT ABDOMEN AND PELVIS WITHOUT AND WITH CONTRAST? CLINICAL INFORMATION: Microscopic hematuria? COMPARISON: None available.? ? FINDINGS: RESEARCH SCHOLAR: Nonobstructive bowel pattern. LUNG BASES: Heart size within normal limits. No pericardial effusion. Right lower lobe atelectasis. LIVER, GALLBLADDER, AND BILIARY TREE: The diffuse hypoattenuation to the liver parenchyma resistive focal fatty sparing at gallbladder fossa. No focal hepatic lesion or biliary ductal dilatation is present. The gallbladder is unremarkable with no evidence of radiopaque gallstones, gallbladder wall thickening, or obvious pericholecystic inflammatory changes.? PANCREAS: Unremarkable.? SPLEEN: Unremarkable.? ADRENAL GLANDS: 2.1 cm left lipid rich adenoma. KIDNEYS AND URETERS: The right kidney measures 11.9 cm in longest sagittal projection, left kidney measures 10.3 cm. No renal, ureteral or bladder calculi. No hydroureteronephrosis. No perinephric stranding. No filling defects identified in the intrarenal collecting systems or tortuous contrast-filled ureters. BLADDER: Inferior aspect of the urinary bladder is mildly irregular. GASTROINTESTINAL TRACT: Decompressed stomach. Nonobstructive bowel pattern. Unremarkable terminal ileum and appendix. Diverticulosis without diverticulitis. ABDOMINAL WALL: No significant hernia is appreciated.? LYMPH NODES: Normal. VASCULAR: Unremarkable. PELVIC VISCERA: Unremarkable.? OSSEUS STRUCTURES: Symphysis pubis sclerosis. Mild anterolisthesis L4 on L5. L5-S1 disc space narrowing. IMPRESSION: Mildly irregular inferior urinary bladder wall, possible cystitis. Correlate with urinalysis. Diverticulosis without diverticulitis. Hepatic steatosis. Assessment & Plan Assessment & Plan (1) Microscopic hematuria: Code(s): R31.29 - Other microscopic hematuria (2) Weak urinary stream: Code(s): R39.12 - Poor urinary stream Plan alfusozin 10 mg daily was ordered. Follow up in 3 months. Orders: Orders AMB Urinalysis Automated 12/06/22 Z13.9 - Encounter for screening, unspecified AMB Cystoscopy 12/06/22 R31.29 - Other microscopic hematuria Medications: New alfuzosin ER administer after the same meal each day 10 mg PO DAILY 90 tabs 0RF to help with urination Patient Instructions: The patient had an opportunity to ask questions regarding treatment plan. All questions were answered. Imaging, Laboratory studies and physical exam results were discussed and reviewed in detail. No major barriers to understanding were identified. The patient expressed understanding and agreement with the above treatment plan.? ? ? The patient is aware they should contact our office by phone for worsening of their current condition or the appearance of new symptoms. Compliance is encouraged with any medications and followup testing that is ordered.? ? ? It is a privilege to be allowed the opportunity to participate in the urologic care of your patient. If you have any questions or concerns regarding treatment for the above conditions please do not hesitate to contact me. The office telephone contact is [phone].? ? ? This note is constructed in part using voice recognition software. While every effort has been made to ensure accuracy vault keeper errors may have been included.? ? ? Yours sincerely,? ? ? Ana Ríos MD? Coding Level of Care Code Est Pt Level 3 (76584) Diagnoses Microscopic hematuria R31.29 Weak urinary stream R39.12 CPT Codes Cystoscopy - CPT: 51620-[id number] ([id number]) Cystoscopy - CPT: DISPOSABLE SCOPE URO-G FLEXIBLE SCOPE ([id number])
== END 2022-12-06 11:37 | disposition home or self-care (01) ==
PROVIDERS: PCP Internal Medicine; Visit Provider Urology
DX: R31.29 Other microscopic hematuria (principal); R39.12 Poor urinary stream
CPT/HCPCS: 52000; 99213

== ENCOUNTER → 2022-12-06 10:12 | Outpatient (BNVA) | payer MEDICAID, SELFPAY | PROVIDERS: PCP Internal Medicine; Visit Provider Urology | DX: R31.29 Other microscopic hematuria (principal) | CPT/HCPCS: 52000; 81003; 99212 ==

== ENCOUNTER 2023-03-16 11:58 | Outpatient (REF) | payer MEDICAID, SELFPAY ==
[2023-03-19 16:49] LABS: TS Negative Control Passed; TS Panel A 0; TS Panel B 0; TS Positive Control Passed; TSpotTB Negative (Negative)
== END 2023-03-16 11:59 | disposition home or self-care (01) ==
LOC: HO.HHCL 11:58
PROVIDERS: Visit Provider Internal Medicine
DX: Z11.1 Encounter for screening for respiratory tuberculosis (principal); L40.9 Psoriasis, unspecified
CPT/HCPCS: 36415; 86481

== ENCOUNTER 2023-07-30 13:47 | Outpatient (AMB) | payer MEDICAID, SELFPAY ==
[2023-07-30 13:52] VITALS: BMI 46.0
--- NOTE | 2023-07-30 13:52 | MHC.OFFVIS ---
Vital Signs 07/30/23 13:52 Height 5 ft 7 in Weight 294 lb BMI 46.0 Intake Visit Reasons: Lymphedema clinic Intake Note: bilateral LE swelling, last seen over a year ago for bilateral LE swelling, was referred for lymphedema pumps, but insurance denied at that time. Pt states hyperpigmentation, hyperkeratosis on bilateral LE for over 1 yr. In Home Caregiver Required: No Accompanied by: Self / Same As Patient Allergies aspirin [ASA] Allergy (Mild, Verified 07/30/23 13:57) SWOLLEN [facility] HPI Lymphedema clinic: Details: [age] Year old patient presents for evaluation of lymphedema. The patient complains of lymphedema located bilateral lower extremity. This has been present for approximately 2 years. Symptoms that the patient has been experiencing include hyperkeratosis hyperpigmentation lymphedema papillomatosis pitting edema recurrent episodes of infection cellulitis pain and wounds. Patient has had a trial of conservative therapy inclusive compression garments of 20-30 mmHg starting on 05/12/2022. In addition the patient has tried exercise limb elevation and home manual lymph decongestive therapy for proximally 30 minutes a day. They have not experienced any significant relief from the swelling and discomfort. They now present for follow-up evaluation. [facility] Medical History ASCUS of cervix with negative high risk HPV HTN (hypertension) Surgical History Hx of cystoscopy Family History Maternal Aunt Cervical cancer Maternal Aunt Cervical cancer Mother Cervical cancer Brother Prostate cancer Social History Alcohol intake: never Patient Tobacco Use Status: Former Tobacco user Quit Date: 2010 Current occupational status: unemployed Female Reproductive History Menstrual Age of Menarche: 5 Review of Systems Const All systems reviewed & are unremarkable except as noted in HPI and below Reports no additional complaints ENT Reports Normal hearing present Card Denies chest pain, Denies chest pain at rest, Denies chest pain with activity and Denies pedal edema Resp Denies cough GI Denies abdominal pain Musc Denies abnormal gait, Denies muscle cramps and Denies radiating pain into limb Skin/Breast Denies skin ulcer and Denies wounds Neuro Reports Normal hearing present and Denies abnormal gait Psych Reports no additional complaints Physical Exam Vital Signs: BMI result Body Mass Index 46.0 Const General: cooperative, healthy appearing and comfortable Orientation/consciousness: oriented to person, oriented to place and oriented to time HEENT Head: Yes normal to inspection Neck Neck: Yes normal visual inspection Carotids: no bruits Chest Chest palpation & inspection: normal inspection of the chest Resp Effort & Inspection: normal respiratory effort and able to speak in complete sentences Auscultation: clear to auscultation bilaterally, no crackles, no rales, no rhonchi and no wheezes Cardio Rate: regular rate Rhythm: regular rhythm Heart sounds: S1 normal heart sound present and S2 normal heart sound present Bruits: no carotid bruits Peripheral pulses: Peripheral pulses 2+ throughout GI Inspection: Yes normal to inspection Skin Wounds: no wounds Hair: normal Neuro General: oriented to person, oriented to place and oriented to time Cranial nerves: Yes CN's II-XII intact bilaterally and Yes Normal hearing present Cognition (Neuro): normal cognition Motor exam (neuro): 5/5 motor strength present throughout Extrem Other: venous exam: +2 edema Right in cm: Thigh 62 Knee 49.5 Calf 45.75 Ankle 29.5 Left in cm: Thigh 61.5 Knee 51.75 Calf 47.25 Ankle 29 Hip/waist 138 General: No clubbing, No cyanosis and Yes edema Psych Appearance: grossly normal Mental Status: mental status grossly normal Speech and movement: Normal speech and movement present Assessment & Plan Assessment & Plan (1) Lymphedema: Code(s): I89.0 - Lymphedema, not elsewhere classified Category: Medical Plan: In short the patient has late on sent lymphedema. The patient has been on conservative treatment for at least 3 months with minimal relief. Patient has tried 30 mm of mercury compression garments, elevation, exercise healthy diet and doing manual says self MLD to the best of their ability for over 4 weeks but with no significant relief. She has been compliant with the program but has provided minimal relief. In addition on physical we are noticing hyperpigmentation, lymphorrhea, and hyperplasia. It appears that she has stage 2 lymphedema. Patient has completed multiple forms of conservative therapy yet significant symptoms remain. Patient requires the use of a pneumatic compression device which we will assist in trying to have the patient obtain them. A pneumatic compression device will help reduce swelling and other lymphedema comorbidities. Thank you for allowing us to assist in this patient's care. Coding Level of Care Code Est Pt Level 4 (78935) Diagnoses Lymphedema I89.0
== END 2023-07-30 14:27 | disposition home or self-care (01) ==
LOC: HO.HVS 13:47
PROVIDERS: PCP Internal Medicine; Visit Provider Surgery Vascular Surgery
DX: I89.0 Lymphedema, not elsewhere classified (principal)
CPT/HCPCS: 99214

== ENCOUNTER → 2023-07-30 13:47 | Outpatient (BNVA) | payer MEDICAID, SELFPAY | PROVIDERS: PCP Internal Medicine; Visit Provider Surgery Vascular Surgery | DX: I89.0 Lymphedema, not elsewhere classified (principal) | CPT/HCPCS: 99212 ==

== ENCOUNTER 2023-09-04 10:24 | Outpatient (AMB) | payer MEDICAID, SELFPAY ==
--- NOTE | 2023-09-04 10:36 | A.OFFVIS_ITS ---
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 No complaints. Last Pap/HPV was negative in 08/29 Last Mammogram was BI-RADS 1 in 09/28 Last Colonoscopy was done in 02/23, the recommendation was to repeat in 10 years [facility] Medical History (Updated 09/04/23 @ 10:46 by Jonathon Landers MD) ASCUS of cervix with negative high risk HPV HTN (hypertension) Surgical History (Updated 09/04/23 @ 10:46 by Nasima Pierce CMA) Hx of tubal ligation Hx of cystoscopy Family History Maternal Aunt Cervical cancer Maternal Aunt Cervical cancer Mother Cervical cancer Brother Prostate cancer Social History (Updated 09/04/23 @ 10:47 by Nasima Pierce CMA) Household Members Other:: [facility] Housing: Apartment Alcohol intake: never Patient Tobacco Use Status: Former Tobacco user Quit Date: 2010 Current occupational status: disabled Sexually active: No Sexual orientation: Straight/Heterosexual Gender identity: Female Female Reproductive History Menstrual Age of Menarche: 5 Menopause type: natural Total pregnancies: 5 Full term: 5 Number of Living Children: 5 Date of last pap smear: 09/01/22 Date of Mammogram: 09/29/21 Review of Systems Const All systems reviewed & are unremarkable except as noted in HPI and below Card Reports as per HPI Resp Reports as per HPI GI Reports as per HPI and Reports no additional complaints Reports as per HPI Physical Exam Vital Signs: BMI result Body Mass Index 45.9 Const General: cooperative, healthy appearing and comfortable Chest Chest palpation & inspection: normal inspection of the chest and normal palpation of entire chest wall Breast/axilla inspection: normal inspection of the breasts and normal inspection of the axillae Breast/axilla palpation: normal palpation of the breasts, normal palpation of the axillae and no axillary lymphadenopathy Resp Effort & Inspection: normal respiratory effort Auscultation: clear to auscultation bilaterally Percussion: percussion normal Cardio Palpation: normal PMI Rate: regular rate Rhythm: regular rhythm Heart sounds: no murmurs and no rubs Peripheral pulses: Peripheral pulses 2+ throughout GI Inspection: Yes normal to inspection Palpation (GI): Soft to palpation, nontender, no guarding, not rigid and No hepatosplenomegaly present Percussion: Yes normal to percussion Auscultation: normal bowel sounds Rectal Exam - Female: deferred General: Yes bladder normal to palpation External Female Exam: No lesion Speculum Exam - Vagina: normal appearance of the vagina, normal palpation, normal vaginal discharge and not erythematous Speculum Exam - Cervix: normal appearance of the cervix and normal palpation Bimanual exam- vagina & uterus: normal bimanual exam, normal palpation, uterine size normal, bladder normal to palpation, consistency normal and normal palpation Bimanual Exam- Adnexa, other: normal adnexae, no masses and no tenderness Assessment & Plan Assessment & Plan (1) Well woman exam: Code(s): Z01.419 - Encounter for gynecological examination (general) (routine) without abnormal findings Category: Medical Plan: Co testing not indicated this year. Counseled the patient about the recommended dietary allowance of 1200 mg of Calcium & 600 IU of vitamin D. Mammogram ordered. The patient was instructed to perform monthly self-breast exams and schedule annual exam in a year. All questions answered and the patient verbalized understanding. Orders: Orders MM tomosynthesis screening BI Today Z12.31 - Encounter for screening mammogram for malignant neoplasm of breast Coding Level of Care Code Est Pt Prev Care 40-64y(67496) Diagnoses Well woman exam Z01.419
[2023-09-04 10:37] VITALS: BP 132/86; BMI 45.9
== END 2023-09-04 11:06 | disposition home or self-care (01) ==
PROVIDERS: PCP Internal Medicine; Visit Provider Obstetrics & Gynecology
DX: Z01.419 Encounter for gynecological examination (general) (routine) without abnormal findings (principal)
CPT/HCPCS: 99396

== ENCOUNTER → 2023-09-04 10:24 | Outpatient (BNVA) | payer MEDICAID, SELFPAY | PROVIDERS: Visit Provider Obstetrics & Gynecology | DX: Z01.419 Encounter for gynecological examination (general) (routine) without abnormal findings (principal) | CPT/HCPCS: 99396 ==

== ENCOUNTER 2024-01-14 09:32 | Outpatient (REF) | payer MEDICAID, SELFPAY ==
[2024-01-14 11:52] LABS: Estimated Average Glucose 117 mg/dL; Hemoglobin A1C 119.7653 umol/L; Hemoglobin A1c % 5.7 % (<6.0)
[2024-01-14 12:07] LABS: Alanine Aminotransferase 17 U/L (0-31); Albumin Level 3.8 g/dL (3.5-5.0); Alkaline Phosphatase 90 U/L (39-117); Anion Gap 12 (12-20); Aspartate Amino Transferase 21 U/L (5-31); Bilirubin Total 0.3 mg/dL (0.0-1.0); Blood Urea Nitrogen 13 mg/dL (9-16); Calcium 8.9 mg/dL (8.4-10.2); Carbon Dioxide 23 mmol/L (22-29); Chloride 110 mmol/L (96-108); Cholesterol 159 mg/dL (<200); Estimated Glomerular Filt Rate > 60; Glucose Random 105 mg/dL (60-115); HDL Cholesterol 37 mg/dL (>40); LDL Cholesterol Calculated 100 mg/dL (<100); Potassium 3.8 mmol/L (3.3-5.1); Sodium 141 mmol/L (135-145); TSH reflex Free T4 1.62 uIU/mL (0.32-4.0); Total Protein 7.4 g/dL (6.5-8.0); Triglycerides 110 mg/dL (<150); Vitamin D 25-OH Total 36.1 ng/mL (>30)
[2024-01-14 12:08] LABS: HIV AB/AG Nonreactive (Nonreactive); HIV Num 1 0.04 S/CO (0.00-0.99)
[2024-01-17 01:39] LABS: HCV Log PCR <1.18 NOT DETECTED Log IU/mL (NOT DETECTED); HepC Viral Load <15 NOT DETECTED IU/mL (NOT DETECTED)
== END 2024-01-14 09:33 | disposition home or self-care (01) ==
LOC: HO.HHCL 09:32
PROVIDERS: Visit Provider Internal Medicine
DX: I10 Essential (primary) hypertension (principal)
CPT/HCPCS: 36415; 80053; 80061; 82306; 83036; 84443; 87389; 87522

== ENCOUNTER 2024-10-23 10:42 | Outpatient (AMB) | payer MEDICAID, SELFPAY ==
--- NOTE | 2024-10-23 10:59 | MHC.OFFVIS ---
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 No complaints. Last Pap/HPV was negative in 08/29 Last Mammogram was BI-RADS 1 in 09/28 Last Colonoscopy was done in 02/23, the recommendation was to repeat in 10 years [facility] Medical History ASCUS of cervix with negative high risk HPV HTN (hypertension) Surgical History Hx of tubal ligation Hx of cystoscopy Family History Maternal Aunt Cervical cancer Maternal Aunt Cervical cancer Mother Cervical cancer Brother Prostate cancer Social History Household Members Other:: [facility] [employer] [facility] Housing: Apartment Alcohol intake: never Patient Tobacco Use Status: Former Tobacco user Current occupational status: disabled Sexual orientation: Straight/Heterosexual Gender identity: Female Female Reproductive History Menstrual Age of Menarche: 5 control method: permanent sterilization Date of last pap smear: 09/01/22 Date of Mammogram: 09/29/21 Review of Systems Const All systems reviewed & are unremarkable except as noted in HPI and below Card Reports as per HPI Resp Reports as per HPI GI Reports as per HPI and Reports no additional complaints Reports as per HPI Physical Exam Vital Signs: Last Vital Signs BP 144/100 H 10/23/24 11:06 Const General: cooperative, healthy appearing and comfortable Chest Chest palpation & inspection: normal inspection of the chest and normal palpation of entire chest wall Breast/axilla inspection: normal inspection of the breasts and normal inspection of the axillae Breast/axilla palpation: normal palpation of the breasts, normal palpation of the axillae and no axillary lymphadenopathy Resp Effort & Inspection: normal respiratory effort Auscultation: clear to auscultation bilaterally Percussion: percussion normal Cardio Palpation: normal PMI Rate: regular rate Rhythm: regular rhythm Heart sounds: no murmurs and no rubs Peripheral pulses: Peripheral pulses 2+ throughout GI Inspection: Yes normal to inspection Palpation (GI): Soft to palpation, nontender, no guarding, not rigid and No hepatosplenomegaly present Percussion: Yes normal to percussion Auscultation: normal bowel sounds Rectal Exam - Female: deferred General: Yes bladder normal to palpation External Female Exam: No lesion Speculum Exam - Vagina: normal appearance of the vagina, normal palpation, normal vaginal discharge and not erythematous Speculum Exam - Cervix: normal appearance of the cervix and normal palpation Bimanual exam- vagina & uterus: normal bimanual exam, normal palpation, uterine size normal, bladder normal to palpation, consistency normal and normal palpation Bimanual Exam- Adnexa, other: normal adnexae, no masses and no tenderness Assessment & Plan Assessment & Plan (1) Well woman exam: Code(s): Z01.419 - Encounter for gynecological examination (general) (routine) without abnormal findings Category: Medical Plan: Co testing not indicated this year. Counseled the patient about the recommended dietary allowance of 1200 mg of Calcium & 600 IU of vitamin D. Mammogram ordered. The patient was instructed to perform monthly self-breast exams and schedule annual exam in a year. All questions answered and the patient verbalized understanding. Orders: Orders MM tomosynthesis screening BI Today Z12.31 - Encounter for screening mammogram for malignant neoplasm of breast Coding Level of Care Code Est Pt Prev Care 40-64y(83995) Diagnoses Well woman exam Z01.419
[2024-10-23 11:06] VITALS: BP 144/100; BMI 43.5
--- OUTSIDE RECORDS SUMMARY | 2024-10-23 11:20 | XMS_ITS | Encounter Summary ---
Author Organization [employer] Address [address] [facility] [address], [place] [address] Care Team Providers Care Wrapper Dipper Name Role Phone Carlene Aggarwal MD Primary Care Provide r Reason for Visit * Reason Onset Date Comments Nurse Triage 02/05/2023 Encounter Details Date Type Department Care Team ([facility] st Contact Info) Description 02/05/[address] [facility] MEDICINE [address] [place], [place] [phone] Carlene Aggarwal MD [address] [place] [address] Nurse Triage Social History Tobacco Use Types Packs/Day Years Used Date Smoking Tobacco: Former Cigarettes Q uit: 2020 Passive Smoke Exposure: Past Smokeless Tobacco: Never Alcohol Use Standard Drinks/Week Comments Not Currently 0 (1 standard drink = 0.6 oz pur e alcohol) Comments Unknown Sex and Gender Information Value Date Recorded Sex Assigned at Female 02/06/2022 10:27 AM EDT Legal Sex Female 10:27 AM EDT Gender Identity Female 02/06/2022 10:27 AM EDT Sexual Orientation Straight 02/06/2022 10 :27 AM EDT documented as of this encounter Miscellaneous Notes * Telephone Encounter - Monica Ruelas RN - 02/05/2023 5:10 PM EDT Triage call x2 attempts with [place] Manager Requirements ID [id number] Pt didn't answer. Left voice message to call [facility] [phone] * Telephone Encounter - Faye Zamudio - 02/05/2023 4:02 PM EDT Symptoms: Leg Pain - Not From Injury, Cough, Chest Pain - Adult Outcome: Schedule an urgent appointment (within 1 hour) or talk to a nurse or provider soon Reason: Caller denied all higher acuity questions The caller accepted this outcome Azerbaijani speaker documented in this encounter Plan of Treatment Upcoming Encounters Date Type Department Care Team (Late st Contact Info) Description 11/13/2024 9:15 AM EDT Office Visit [facility] MEDICINE [address] [place], [place] [phone] Carlene Aggarwal MD [address] [place], [place] [phone] documented as of this encounter Visit Diagnoses Not on filedocumented in this encounter Care Teams Wrapper Dipper Relationship Specialty Start Date End Date Carlene Aggarwal MD [address] [place] [address] [phone] PCP - General Family Medicine 12/28/17 Sury Benoit Railroad Car LettererShop Assistant 07/03/23 documented as of this encounter
--- OUTSIDE RECORDS SUMMARY | 2024-10-23 11:20 | XMS_ITS | Clinical Summary ---
Author Organization [facility] Address [address] [place] [address] Phone Care Team Providers Care Entry Level Software Developer Name Role Phone Carlene Aggarwal MD Primary Care Provide r Allergies Active Allergy Reactions Criticality Noted Date Comments Aspirin 04/04/2019 Medications albuterol HFA (PROAIR HFA ; PROVENTIL HFA ; VENTOLIN HFA) 90 mcg/actuation inhaler Inhale 2 puffs by mouth every 4 (four) hours if needed for wheezing. 1 each 04/21/2024 Active Medical History Medical History Date Comments Morbid obesity (CMS/HCC V24, CMS/HCC V28) DX:Morbid obesity (HCC) HTN (hypertension) DX:HTN (hyper tension) Asthma DX:Asthma Latent tuberculosis DX:Latent tu berculosis Family History Medical History Relation Name Comments Melanoma Neg Hx Social History Tobacco Use Types Packs/Day Years Used Date Smoking Tobacco: Former Smokeless Tobacco: Never Comments Unknown Sex and Gender Information Value Date Recorded Sex Assigned at Not on file Legal Sex Female 2:28 AM EST Gender Identity Not on file Sexual Orientation Not on file Obstetrics History Last Filed Vital Signs Vital Sign Reading Time Taken Comments Blood Pressure 146/90 04/21/2024 12:11 PM EST Pulse 58 04/21/2024 12:11 PM EST Temperature 36.8 C (98.2 F) 04/21/2024 12:11 PM EST Respiratory Rate 20 04/21/2024 12:11 PM EST Oxygen Saturation 98% 04/21/2024 12:11 PM EST Inhaled Oxygen Concentration - - Weight 135 kg (298 lb) 04/21/2024 12:11 PM EST Height 170.2 cm (5' 7 ) 04/21/2024 12:11 PM EST Body Mass Index 46.67 04/21/2024 12:11 PM EST Plan of Treatment Health Maintenance Due Date Last Done Comments Breast Cancer Screening 1965 Hepatitis B Vaccines (1 of 3 - 19+ 3-dose series) 1984 Zoster Vaccines (1 of 2) 09/07/2015 COVID-19 Vaccine (3 - Moderna risk series) 09/15/2020 08/18/2020, 07/21/2020 Colorectal Cancer Screening: Colonoscopy 03/12/2022 Hepatitis C Screening 03/12/2022 Social Influencers of Health Screening 03/12/2022 Hypertension/CHF/CAD Annual BMP Blood Test 03/22/2022 Depression Screening 09/09/2024 09/10/2023 DTaP,Tdap,and Td Vaccines (2 - Td or Tdap) 11/23/2024 11/23/2014 Influenza Vaccine (#1) 2024 , 06/10/2020, 01/03/2018, Additional history exists Cervical Cancer Screening: Pap Smear 08/31/2025 08/31/2022 Cholesterol Screening (Lipid Panel) 01/13/2029 01/14/2024 RSV Immunization Adult Patients (1 - 1-dose 75+ series) 2040 Pneumococcal Vaccine: 50+ Years Completed 09/10/2023 HIV Screening Completed 01/14/2024 HIB Vaccines Aged Out No longer eligi ble based on patient's age to complete this topic HPV Vaccines Aged Out No longer eligi ble based on patient's age to complete this topic Hepatitis A Vaccines Aged Out No long er eligible based on patient's age to complete this topic IPV Vaccines Aged Out No longer eligi ble based on patient's age to complete this topic MMR Vaccines Aged Out No longer eligi ble based on patient's age to complete this topic Meningococcal ACWY Vaccine Aged Out N o longer eligible based on patient's age to complete this topic Meningococcal B Vaccine Aged Out No l onger eligible based on patient's age to complete this topic RSV Immunization Patients Under 20 months Aged Out No longer eligible based on patient's age to complete this topic Varicella Vaccines Aged Out No longer eligible based on patient's age to complete this topic Additional Health Concerns Infection Onset Date Last Indicated Coronavirus 04/21/2024 04/21/2024 Insurance MEDICAID - [place] Care Teams Entry Level Software Developer Relationship Specialty Start Date End Date Carlene Aggarwal MD [address] [phone] PCP - General Internal Medicine 04/21/24
== END 2024-10-23 11:18 | disposition home or self-care (01) ==
PROVIDERS: PCP Internal Medicine; Visit Provider Obstetrics & Gynecology
DX: Z01.419 Encounter for gynecological examination (general) (routine) without abnormal findings (principal)
CPT/HCPCS: 99396; 99459

== ENCOUNTER → 2024-10-23 10:42 | Outpatient (BNVA) | payer MEDICAID, SELFPAY | PROVIDERS: PCP Internal Medicine; Visit Provider Obstetrics & Gynecology | DX: Z01.419 Encounter for gynecological examination (general) (routine) without abnormal findings (principal) | CPT/HCPCS: 99396 ==

== ENCOUNTER 2024-12-04 15:05 | Outpatient (REF) | payer MEDICAID, SELFPAY ==
--- NOTE | ~2024-12-04 | MM_ITS ---
EXAMINATION: MM SCREENING DIGITAL BREAST TOMOSYNTHESIS, BILATERAL CLINICAL INFORMATION: Screening. Asymptomatic. COMPARISON: Mammography: Comparison is made with available priors TECHNIQUE: Digital breast mammography with tomosynthesis is performed in both the craniocaudal and mediolateral oblique views along with computer-aided detection (CAD). FINDINGS: There are scattered areas of fibroglandular density (ACR BI-RADS breast composition Category b). There are no significant masses, abnormal calcifications, or other abnormalities. MM/MM tomosynthesis screening BI IMPRESSION: No mammographic evidence of malignancy. ASSESSMENT: BI-RADS BI-RADS 1 - Negative RECOMMENDATION: Routine annual mammography screening. 1 year F/U This examination should not preclude the clinical evaluation of a suspicious palpable abnormality. This patient's information was entered into a reminder system with a target due date for their next mammogram. Electronically signed by: Allie Shaffer DO 12/09/2024 10:00 AM [email or web address]
--- OUTSIDE RECORDS SUMMARY | 2024-12-04 15:45 | XMS_ITS | Encounter Summary ---
Author Organization [employer] Address [address] [facility] [address], [place] [address] Care Team Providers Care Corrections Counselor Name Role Phone Carlene Aggarwal MD Primary Care Provide r Reason for Visit * Reason Onset Date Comments Nurse Triage 02/05/2023 Encounter Details Date Type Department Care Team ([facility] st Contact Info) Description 02/05/2023 Telephone [facility] MEDICINE [address] [place], [place] [phone] Carlene Aggarwal MD [address] [place] [address] Nurse Triage Social History Tobacco Use Types [...] PM EDT Triage call x2 attempts with [place] Fire Alarm Technician ID [id number] Pt didn't answer. Left voice message to call [facility] [phone] * Telephone Encounter - Faye Zamudio - 02/05/2023 4:02 PM EDT Symptoms: Leg Pain - Not From Injury, Cough, Chest Pain - Adult Outcome: Schedule an urgent appointment (within 1 hour) or talk to a nurse or provider soon Reason: Caller denied all higher acuity questions The caller accepted this outcome Ethiopian speaker documented in this encounter Plan of Treatment Upcoming Encounters Date Type Department Care Team (Late st Contact Info) Description 01/12/2025 11:15 AM EDT Office Visit [facility] MEDICINE [address] [place], [place] [phone] Carlene Aggarwal MD [address] [place], [place] [phone] documented as of this encounter Visit Diagnoses Not on filedocumented in this encounter Care Teams Corrections Counselor Relationship Specialty Start Date End Date Carlene Aggarwal MD [address] [place] [address] [phone] PCP - General Family Medicine 12/28/17 Sury Benoit Director Clinical ResearchBiztalk Administrator 07/03/23 documented as of this encounter
--- OUTSIDE RECORDS SUMMARY | 2024-12-04 15:45 | XMS_ITS | Encounter Summary ---
Author Organization [employer] Address [address] [facility] [address] [place] [address] Care Team Providers Care Mortgage Coordinator Name Role Phone Carlene Aggarawl MD Primary Care Provide r Reason for Visit * Reason Comments Med Refill Encounter Details Date Type Department Care Team (Late st Contact Info) Description 07/25/2024 Refill [facility] [address] [place], [place] [phone] Carlene Aggarwal MD [address] [place] [address] Class 3 severe obesity due to excess calories with serious comorbidity and body mass index (BMI) of 45.0 to 49.9 in adult; Prediabetes Social History Tobacco Use Types Packs/Day Years Used Date Smoking Tobacco: Former Cigarettes Q uit: 2020 Passive Smoke Exposure: Past Smokeless Tobacco: Never Alcohol Use Standard Drinks/Week Comments Not Currently 0 (1 standard drink = 0.6 oz pur e alcohol) Depression Answer Date Recorded Patient Health Questionnaire-9 Score 0 09/10/2023 Patient Health Questionnaire-9 Score 0 09/10/2023 Last PHQ-9: Questionnaire Data Not on file 0 09/10/2023 Housing Stability Answer Date Recorded What is your housing situation today? I have dewey sandoval 08/10/[address] you li ve. Do you have problems with any of the following? None of the above 08/10/2023 Food Insecurity Answer Date Recorded Within the past 12 months, y ou worried that your food would run out before you got money to buy more: Never True 08/10/2023 Within the past 12 months,th e food you bought just didn't last and you didn't have enough money to get more: Never True 06/2023 Transportation Answer Date Recorded In the past 12 months, has l ack of transportation kept you from medical appts, meetings, work or from getting things needed for daily living? No 08/10/2023 Utilities Answer Date Recorded In the past 12 months, has t he electric, gas, oil or water company threatened to shut off services in your home? Yes 08/10/2023 Depression Answer Date Recorded Patient Health Questionnaire-2 Score 0 09/10/2023 Comments Unknown Sex and Gender Information Value Date Recorded Sex Assigned at Female 02/06/2022 10:27 AM EDT Legal Sex Female 10:27 AM EDT Gender Identity Female 02/06/2022 10:27 AM EDT Sexual Orientation Straight 02/06/2022 10 :27 AM EDT documented as of this encounter Plan of Treatment Upcoming Encounters Date Type Department Care Team (Late st Contact Info) Description 01/12/2025 11:15 AM EDT Office Visit [facility] [address] [place] [address] Carlene Aggarwal MD [address] [place] [address] documented as of this encounter Visit Diagnoses Diagnosis Class 3 severe obesity due to excess calories with serious comorbidity and body mass index (BMI) of 45.0 to 49.9 in adult Prediabetes Other abnormal glucose documented in this encounter Additional Health Concerns Assessment Noted Time PHQ-9 Depression Total Score: 0 09/10/19 24 10:06 AM EDT documented as of this encounter Care Teams Mortgage Coordinator Relationship Specialty Start Date End Date Carlene Aggarwal MD [address] [place] [address] PCP - General Family Medicine 12/28/17 Sury Benoit Tablet Making Machine OperatorVideo Intern 07/03/23 documented as of this encounter
--- OUTSIDE RECORDS SUMMARY | 2024-12-04 15:45 | XMS_ITS | Clinical Summary ---
Author Organization [facility] Address [address] [place] [address] Phone Care Team Providers Care Licensed Direct Entry Midwife Name Role Phone Carlene Aggarwal MD Primary [...] Annual BMP Blood Test 03/22/2022 Depression Screening 04/09/2024 DTaP,Tdap,and Td Vaccines (2 - Td or [...] 04/21/2024 Insurance MEDICAID - [place] Care Teams Licensed Direct Entry Midwife Relationship Specialty Start Date End Date Carlene Aggarwal MD [address] [phone] PCP - General Internal Medicine 04/21/24
--- OUTSIDE RECORDS SUMMARY | 2024-12-04 15:45 | XMS_ITS | Encounter Summary ---
Author Organization [employer] Address [address] [facility] [address] [address] Care Team Providers Care Pocket Maker Name Role Phone Carlene Aggarwal MD Primary Care Provide r Reason for Visit * Reason Onset Date Comments Prior Auth Prescription 11/05/2024 Prior Authorization 11/05/2024 PA Request: Margarito Encounter Details Date Type Department Care Team ([facility] st Contact Info) Description 11/05/2024 Telephone [facility] [address] [place], [place] [phone] Carlene Aggarwal MD [address] [place] [address] Prior Auth Prescription; Prior Authorization (PA Request: Anjelpbrosales) Social History Tobacco Use Types Packs/Day Years [...] encounter Miscellaneous Notes * Telephone Encounter - Blanca Doll - 11/06/2024 4:05 PM EDT Patient last seen 02/14/2024, required notes for PA's to be with in the last 90 days with an updated weight. Patient has an appt pending for 11/13/2024. Unable to do PA for Zepbound at this time. 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 documented in this encounter Plan of Treatment Upcoming Encounters Date Type Department Care Team (Late st Contact Info) Description 01/12/2025 11:15 AM EDT Office Visit [facility] [address] [place] [address] Carlene Aggarwal MD [address] [place], [place] [phone] documented as of this encounter Visit Diagnoses Not on filedocumented in this encounter Additional Health Concerns Assessment Noted Time PHQ-9 Depression Total Score: 0 09/10/19 10:06 AM EDT documented as of this encounter Care Teams Pocket Maker Relationship Specialty Start Date End Date Carlene Aggarwal MD [address] [place] [address] PCP - General Family Medicine 12/28/17 Sury Benoit Veneer GluerAssurance Manager Insurance 07/03/23 documented as of this encounter
--- OUTSIDE RECORDS SUMMARY | 2024-12-04 15:45 | XMS_ITS | Clinical Summary ---
Author Organization [employer] Address [address] [facility] [address] [place] [address] Care Team Providers Care Marble Carver Name Role Phone Carlene Aggarwal MD Primary Care Provide r Allergies Active Allergy Reactions Criticality Noted Date Comments Aspirin 10/26/2014 Other reaction(s): facial swelling Medications cyclobenzaprine (Flexeril) 5 MG tablet Take 1 tablet by mouth every 8 (eight) hours. 05/08/19 19 Active ketoconazole (NIZOral) 2 % shampoo Apply topically at bed time. 09/07/19 19 Active triamcinolone (Kenalog) 0.1 % ointmentIndicat ions:Psoriasis vulgaris APPLY TO AFFECTED AREA TWICE A DAY 454 g 1 08/03/19 24 Active albuterol 108 (90 Base) MCG/ACT inhalerIndicati ons:Mild intermittent asthma, unspecified whether complicated Inhale 2 puffs every 4 (four) hours if needed for wheezing or shortness of breath. 18 g 2 09/10/19 24 Active Semaglutide-Mandeep ght Management (Wegovy) 0.25 MG/0.5ML solution auto-injectorIn dications:Class 3 severe obesity due to excess calories with serious comorbidity and body mass index (BMI) of 45.0 to 49.9 in adult Inject 0.25 mg under the skin 1 (one) time per week. 0.5 mL 01/11/20 24 Active gabapentin (Neurontin) 800 MG tabletIndicatio ns:Chronic bilateral low back pain with sciatica, sciatica laterality unspecified Take 1 tablet (800 mg) by mouth 3 times daily. 90 tablet 2 01/11/20 24 025 Active acetaminophen (Tylenol 8 Hour) 650 MG ER tabletIndicatio ns:Chronic bilateral low back pain with sciatica, sciatica laterality unspecified Take 2 tablets (1,300 mg) by mouth every 8 (eight) hours. 30 tablet 2 02/14/20 24 Active amLODIPine (Norvasc) 10 MG tabletIndicatio ns:Essential hypertension Take 1 tablet (10 mg) by mouth Once per day. 30 tablet 11 02/14/20 24 025 Active docusate sodium (Colace) 100 MG capsuleIndicati ons:Other constipation Take 1 capsule (100 mg) by mouth 2 times daily. 180 capsule 03/28/20 24 Active ustekinumab (Stelara) injectionIndica tions:Psoriasis vulgaris Inject SubQ 90mg/ml [id number] 2 mL 11 07/12/19 25 Active lidocaine (Lidoderm) 5 % patchIndication s:Chronic bilateral low back pain with sciatica, sciatica laterality unspecified APPLY 1 PATCH TOPICALLY ONCE PER DAY. REMOVE & DISCARD PATCH WITHIN 12 HOURS OR DIRECTED BY MD. 30 patch 1 10/14/19 25 Active GaviLAX 17 GM/SCOOP powderIndicatio ns:Constipation , unspecified constipation type DISSOLVE 17 GRAMS IN WATER AND TAKE BY MOUTH ONCE DAILY 510 g 2 10/14/19 25 Active Fluocinolone Acetonide Scalp ([place]-Smoothe/ FS Scalp) 0.01 % oilIndications: Psoriasis USE ON DAMP SCALP 2 TO 3 TIMES AT NIGHT, APPLY HEAD COVER. 118.28 mL 11 10/14/19 25 Active lisinopril 40 MG tabletIndicatio ns:Essential hypertension TAKE 1 TABLET BY MOUTH EVERY DAY 90 tablet 3 11/05/19 25 Active Tirzepatide-Mandeep ght Management (Zepbound) 10 MG/0.5ML solution auto-injectorIn dications:Predi abetes,Class 3 severe obesity due to excess calories with serious comorbidity and body mass index (BMI) of 40.0 to 44.9 in adult Inject 0.5 mL (10 mg) under the skin 1 (one) time per week. 2 mL 11/14/19 25 Active Tirzepatide-Mandeep ght Management (Zepbound) 10 MG/0.5ML solution auto-injectorIn dications:Class 3 severe obesity due to excess calories with serious comorbidity and body mass index (BMI) of 45.0 to 49.9 in adult,Prediabet es Inject 0.5 mL (10 mg) under the skin 1 (one) time per week. 2 mL 10/21/19 25 025 Discontinued(Re order (will not trigger notification to Pharmacy)) Active Problems Problem Noted Date Diagnosed Date Class 3 severe obesity due t o excess calories with serious comorbidity and body mass index (BMI) of 40.0 to 44.9 in adult 11/13/2024 Assessment & Plan (11/13/2024 10:18 AM EDT): Extensive counseling about healthy diet and exercise done today, patient is to continue with Zepbound 10 mg weekly, plan is for her to come back to clinic in 4 to 6 weeks for weight loss monitoring and side effects monitoring Prediabetes 02/14/2024 Assessment & Plan (11/13/2024 10:14 AM EDT): Glucose today is 104 and her A1c went down to 5.6 which means it is now out of prediabetes range, I advised to continue with healthy diet and exercise, I will continue to prescribe for patient Zepbound Other constipation 02/14/2024 Constipation 01/11/2024 Assessment & Plan (01/14/2024 4:35 PM EDT): I advise to increase water and fiber on diet I will prescribed miralax and colace Class 3 severe obesity due t o excess calories with serious comorbidity and body mass index (BMI) of 45.0 to 49.9 in adult 09/10/2023 Assessment & Plan (02/14/2024 1:29 PM EST): Counseling done, I will prescribe zepbund 2.5mg weekly side effects where reviewed RTC 4 weeks Assessment & Plan (01/14/2024 4:36 PM EDT): I will prescribed wegovy for patient I do believe patient will benfit form medication, losing weight will for sure reduce morbidity Assessment & Plan (09/10/2023 10:01 AM EDT): Today extensive discussion was done about life style modifications I advise healthy diet (low calorie) and cardiovascular exercise I referred her to bariatric specialist Palpitations 09/10/2023 Assessment & Plan (09/10/2023 10:02 AM EDT): Avoid caffeine Maintain hydration Do no miss appointment with cardiology on 09/12/23 Acute pain of left knee 05/21/2023 Psoriasis 09/08/2022 Social anxiety disorder 03/17/2022 Chronic low back pain 03/16/2022 Malodorous urine 03/16/2022 Mild intermittent asthma 03/16/2022 Assessment & Plan (11/13/2024 10:16 AM EDT): Asthma is now stable, continue with same interventions Assessment & Plan (09/10/2023 10:00 AM EDT): Patient educated to avoid asthma triggers Albuterol inhaler refilled today Nerve root disorder 03/16/2022 Primary osteoarthritis of both knees 03/16/2022 Assessment & Plan (11/13/2024 10:16 AM EDT): Cane prescription will be generated Continue with plans for weight loss, continue zepbound YAIMA (obstructive sleep apnea) 03/14/2022 Diverticula of intestine 07/06/2017 Habitual self-excoriation 07/06/2017 Mood disorder 07/06/2017 Assessment & Plan (03/19/2022 7:49 AM EST): Refer to [facility] for social anxiety disorder Osteoarthritis of knee 07/06/2017 Assessment & Plan (01/14/2024 4:35 PM EDT): F/u with orthopedics C/w acetaminophen PRN Assessment & Plan (09/10/2023 10:00 AM EDT): Patient will call orthopedics office for a f/u appointment Urinary incontinence 07/06/2017 Peripheral vascular disease 06/16/2016 Obstructive sleep apnea syndrome 06/16/2016 Essential hypertension 11/23/2014 Assessment & Plan (11/13/2024 10:17 AM EDT): Blood pressure is within normal limits advised to take her medication every day without missing any dose, be adherent to low-sodium diet and continue with weight loss Assessment & Plan (02/14/2024 1:27 PM EST): -I discontinue chlorthalidone and put her on amlodipine 10mg daily c/w lisinopril 40mg I advise - Aerobic exercise to reduce BP. Initial goal of 30 min walk 3-5x/week. Increase as tolerated. - low-sodium diet (goal: <2g/day) and heart healthy diet such as DASH to reduce BP and prevent ASCVD. - Home BP monitoring 1-2 x day with goal of <140/90. - Seek immediate medical attention for chest pain, palpitations, SOB, syncope, or sudden changes in mental status. - Do not change or discontinue current prescriptions without first consulting health care provider Assessment & Plan (01/14/2024 4:34 PM EDT): - Aerobic exercise to reduce BP. Initial goal of 30 min walk 3-5x/week. Increase as tolerated. - low-sodium diet (goal: <2g/day) and heart healthy diet such as DASH to reduce BP and prevent ASCVD. - Home BP monitoring 1-2 x day with goal of <140/90. - Seek immediate medical attention for chest pain, palpitations, SOB, syncope, or sudden changes in mental status. - Do not change or discontinue current prescriptions without first consulting health care provider Assessment & Plan (09/10/2023 10:00 AM EDT): It was advise: - Aerobic exercise to reduce BP. Initial goal of 30 min walk 3-5x/week. Increase as tolerated. - low-sodium diet (goal: <2g/day) and heart healthy diet such as DASH to reduce BP and prevent ASCVD. - Home BP monitoring 1-2 x day with goal of <140/90. - Seek immediate medical attention for chest pain, palpitations, SOB, syncope, or sudden changes in mental status. - Do not change or discontinue current prescriptions without first consulting health care provider Assessment & Plan (05/21/2023 12:18 PM EST): Maintenance: BMP: pending Lipid Panel: pending ASCVD Risk: Calculate pending updated labs - Aerobic exercise to reduce BP. Initial goal of 30 min walk 3-5x/week. Increase as tolerated. - low-sodium diet (goal: <2g/day) and heart healthy diet such as DASH to reduce BP and prevent ASCVD. - Home BP monitoring 1-2 x day with goal of <140/90. - Seek immediate medical attention for chest pain, palpitations, SOB, syncope, or sudden changes in mental status. - Do not change or discontinue current prescriptions without first consulting health care provider Assessment & Plan (03/19/2022 7:49 AM EST): Many meds listed in med reconciliation including Lisinopril, Metoprolol, Chlorthalidone, Amlodipine, Verapamil, Spironalactone. Will call pharmacy to elucidate dispense history Will restart Chlorthalidone, to help with fluid overload and complement lisinopril Recheck BMP in 1 month, followup with team provider for HTN mgmt Edema 11/23/2014 Morbid obesity 11/23/2014 Postmenopausal bleeding 11/23/2014 Premature beats 11/23/2014 Encounters Date Type Department Care Team Description 11/14/[address] [phone] Carlene Aggarwal MD Prior Authorization ( PA: Margarito) 11/13/2024 9:15 AM EDT Office Visit [address] [address] Carlene Aggarwal MD Prediabetes (Primary Dx); Mild intermittent asthma, unspecified whether complicated; Essential hypertension; Class 3 severe obesity due to excess calories with serious comorbidity and body mass index (BMI) of 40.0 to 44.9 in adult; Primary osteoarthritis of both knees 11/13/[address] [address] Carlene Aggarwal MD DME CANE 11/13/2024 Travel 11/05/[address] [phone] Carlene Aggarwal MD Prior Auth Prescription; Prior Authorization (PA Request: Zepbound) 11/05/2024 Patient Outreach [facility] [address] [place] [address] Carlene Aggarwal MD Pre-visit Planning ((Unable to reach for PVP screening or LVM) to be completed in office ) 11/03/2024 Refill [facility] [address] [place] [address] Carlene Aggarwal MD Essential hypertension 10/20/2024 Refill [facility] [address] [place] [address] Carlene Aggarwal MD Class 3 severe obesity due to excess calories with serious comorbidity and body mass index (BMI) of 45.0 to 49.9 in adult; Prediabetes 10/20/2024 Telephone [facility] [address] [place] [address] Carlene Aggarwal MD Appointment Request 10/20/2024 Telephone [facility] [address] [place] [address] Carlene Aggarwal MD Chart prep 10/11/2024 Refill [facility] [address] [place] [address] Abbey Obrien MD Psoriasis 10/11/2024 Refill [facility] [address] [place] [address] Carlene Aggarwal MD Chronic bilateral low back pain with sciatica, sciatica laterality unspecified; Constipation, unspecified constipation type; Psoriasis 10/07/2024 Refill [facility] [address] [place], [place] [phone] Carlene Aggarwal MD Class 3 severe obesity due to excess calories with serious comorbidity and body mass index (BMI) of 45.0 to 49.9 in adult; Prediabetes 09/07/2024 Refill [facility] [address] [place], [place] [phone] Carlene Aggarwal MD Class 3 severe obesity due to excess calories with serious comorbidity and body mass index (BMI) of 45.0 to 49.9 in adult; Prediabetes from Last 3 Months Immunizations Immunization Administration Dates Next Due Influenza injectable quadriv alent IIV4 with preservative 01/03/2018,03/03/2015 Influenza injectable quadriv alent preservative free 02/10/2022,06/10/2020,05/05/2016 Moderna Covid-19 Vaccine 12+ 08/18/2020,07/22/19 21 Pneumococcal Conjugate PCV 20 09/10/2023 Tdap 11/23/2014 Social History Tobacco Use Types Packs/Day Years Used Date Smoking Tobacco: Former Cigarettes Q uit: 2019 Passive Smoke Exposure: Past Smokeless Tobacco: Never Tobacco Cessation:Counseling Given: Not Answered Alcohol Use Standard Drinks/Week Comments Not Currently 0 (1 standard drink = 0.6 oz pur e alcohol) Depression Answer Date Recorded Patient Health Questionnaire-9 Score 1 11/13/2024 Patient Health Questionnaire-9 Score 1 11/13/2024 Last PHQ-9: Questionnaire Data Not on file 0 11/13/2024 Housing Stability Answer Date Recorded What is your housing situation today? I have deweyjose guadalupe sandoval 11/13/[address] you li ve. Do you have problems with any of the following? None of the above 11/13/2024 Food Insecurity Answer Date Recorded Within the past 12 months, y ou worried that your food would run out before you got money to buy more: Never True 11/13/2024 Within the past 12 months,th e food you bought just didn't last and you didn't have enough money to get more: Never True 10/2024 Transportation Answer Date Recorded In the past 12 months, has l ack of transportation kept you from medical appts, meetings, work or from getting things needed for daily living? No 11/13/2024 Utilities Answer Date Recorded In the past 12 months, has t he electric, gas, oil or water company threatened to shut off services in your home? No 11/13/2024 Depression Answer Date Recorded Patient Health Questionnaire-2 Score 0 11/13/2024 Internet Access Answer Date Recorded Internet Access Q1 No 11/13/2024 Internet Access Q2 I do not want or need it 10/2024 Comments Unknown Sex and Gender Information Value Date Recorded Sex Assigned at Female 02/06/2022 10:27 AM EDT Legal Sex Female 10:27 AM EDT Gender Identity Female 02/06/2022 10:27 AM EDT Sexual Orientation Straight 02/06/2022 10 :27 AM EDT Last Filed Vital Signs Vital Sign Reading Time Taken Comments Blood Pressure 136/88 11/13/2024 9:57 AM EDT Pulse 76 11/13/2024 9:36 AM EDT Temperature 36.7 C (98 F) 11/13/2024 9:36 AM EDT Respiratory Rate 18 11/13/2024 9:36 AM EDT Oxygen Saturation 98% 11/13/2024 9:36 AM EDT Inhaled Oxygen Concentration - - Weight 126 kg (278 lb 3.2 oz) 11/13/2024 9:36 AM EDT Height 170.2 cm (5' 7 ) 11/13/2024 9:36 AM EDT Body Mass Index 43.57 11/13/2024 9:36 AM EDT Plan of Treatment Upcoming Encounters Date Type Department Care Team (Late st Contact Info) Description 01/12/2025 11:15 AM EDT Office Visit [facility] [address] [place] [address] Carlene Aggarwal MD [address] [place] [address] Health Maintenance Due Date Last Done Comments CT Colonography 1965 FIT DNA/Cologuard 1965 FIT 1965 FOBT 1965 Sigmoidoscopy 1965 Hepatitis B Vaccines (1 of 3 - 19+ 3-dose series) 1984 Zoster Vaccines (1 of 2) 09/07/2015 Mammogram 09/30/2023 09/29/2021, 09/08, 08/21/2017 COVID-19 Vaccine ( - season) 2023 08/18/2020, 07/21/2020 DTaP/Tdap/Td Vaccines (2 - Td or Tdap) 11/23/2024 11/23/2014 Influenza Vaccine (#1) 2024 , 06/10/2020, 01/03/2018, Additional history exists Pap Smear 08/31/2025 08/31/2022, 08/13/2017 Alcohol/Substance Use Screening 11/13/2025 11/13/2024 Depression Screening 11/13/2025 11/13/2024, 11/14/19 Diabetes: Hemoglobin A1C 11/13/2025 025, 01/14/2024, 09/22/2021, Additional history exists Disability Screening 11/13/2025 11/13/2024 SDOH Screening 11/13/2025 11/13/2024 Tobacco Screening 11/13/2025 11/13/2024 Colonoscopy 02/27/2027 02/27/2017 Colorectal Cancer Screening 02/27/2027 Cervical Cancer Screening 09/01/2027 HPV/Cotest 09/01/2027 08/31/2022 Lipid Panel 01/13/2029 01/14/2024, 09/07, 06/07/2020 RSV Patients and Patients Aged 60 years or older (1 - 1-dose 75+ series) 2040 Pneumococcal Vaccine: 50+ Years Completed 09/10/2023 HIV Screening Completed 01/14/2024, 05/19/2022 Hepatitis C Screening Completed 01/14/2024, 023 HIB Vaccines Aged Out No longer eligi [...] patient's age to complete this topic Meningococcal Vaccine Aged Out No robby joy eligible based on patient's age to complete this topic RSV under 20 months Aged Out No longe r eligible based on patient's age to complete this topic Rotavirus Vaccines Aged Out No longer eligible based on patient's age to complete this topic Procedures Procedure Name Priority Date/Time Associated Diagnosis Comments POCT GLYCATED HEMOGLOBIN, TOTAL Routine 11/13/2024 10:13 AM EDT Prediabetes POCT GLUCOSE Routine 11/13/2024 10:08 AM EDT Prediabetes HEPATITIS C VIRAL RNA, QUANTITATIVE, REAL-TIME PCR Routine 01/14/2024 9:41 AM EDT Essential hypertension HIV 1/2 ANTIGEN/ANTIBODY, FOURTH GENERATION W/RFL Routine 01/14/2024 9:41 AM EDT Essential hypertension LIPID PANEL, STANDARD Routine 01/14/2024 9:41 AM EDT Essential hypertension HPV MRNA E6/E7 REFLEX TO HPV 16, 18/45 Routine 08/31/2022 11:22 AM EDT PAP SMEAR Routine 08/31/2022 11:22 AM EDT HM MAMMOGRAPHY Routine 09/29/2021 HM COLONOSCOPY Routine 02/27/2017 from Last 3 Months or Most Recently Relevant to Health Maintenance Results * POCT HGB A1C (11/13/2024 10:13 AM EDT) Hemoglobin A1C 5.6 4.0 - 5.7 % QC Media Lot # [id number] Lot# Expiration Date Blood 11/13/2024 10:1 3 AM EDT Carlene Quintana MD POINT OF CARE TEST EN TER/EDIT ORDERABLES Final Result * POCT Glucose (11/13/2024 10:08 AM EDT) Glucose Blood, POC 104 60 - 200 mg/dL QC Media Lot # [id number] Lot# Expiration Date [id number],[id number] Blood Capillary blood specimen / Unknown 11/13/2024 10:08 AM EDT us Carlene Quintana MD POINT OF CARE TEST EN TER/EDIT ORDERABLES Final Result * Hepatitis C Viral RNA, Quantitative, Real-Time PCR (01/14/2024 9:41 AM EDT) Pathologist [facility] Hepatitis C Viral Load <15 NOT DETECTED NOT DETECTED IU/mL [facility] HCV Log PCR <1.18 NOT DETECTED NOT DETECTED Log IU/mL [facility] Comment:For additional infor j carlos, please refer tohttp://education.Innovectra/faq/MJN20q3(This link is being provided for informational/educational purposes only.)THIS TEST WAS PERFORMED AT:[facility] [place] [phone] ESCOBAR MD Blood Venous blood specimen / Unknown 01/14/2024 9:41 AM EDT 01/14/2024 11:15 AM EDT Carlene Quintana MD LAB BLOOD ORDERABLES Final Result [facility] [address] [place] [phone] * HIV-1/2 Antigen and Antibodies, Fourth Generation, with Reflexes (01/14/2024 9:41 AM EDT) [facility] HIV AB/AG Nonreactive Nonreactive [facility] Comment:HIV-1 p24 Ag and/or HIV-1/HIV-2 Ab not detected.A test result that is nonreactive does not exclude thepossibility of exposure to or infection with HIV-1 and/orHIV-2. Nonreactive results in this assay for individualswith prior exposure to HIV-1 and/or HIV-2 may be due toantigen and antibody levels that are below the limit ofdetection of this assay.The [employer] HIV Ag/Ab Combo assay result andsupplemental assay results should be interpreted inconjunction with the patient's clinical presentation,history and other laboratory results. If the results areinconsistent with clinical evidence, additional testing issuggested to confirm the result. Blood Venous blood specimen / Unknown 01/14/2024 9:41 AM EDT 01/14/2024 11:15 AM EDT us Carlene Quintana MD LAB BLOOD ORDERABLES Final Result Performing Organization Address [facility] Co de Phone Number [facility] [address] [place] [address] [phone] * (ABNORMAL) Lipid Panel, Standard (01/14/2024 9:41 AM EDT) Triglycerides 110 <150 mg/dL [facility] Comment:Desirable Triglyceri de: less than 150 mg/dLBorderline High Triglyceride 150-199 mg/dLHigh Triglyceride: 200-499 mg/dLVery High Triglyceride: greater than or equal to 5OO mg/dL Cholesterol 159 <200 mg/dL [facility] Comment:Desirable Cholestero l: less than 200 mg/dLBorderline High Cholesterol: 200-239 mg/dLHigh Cholesterol: greater than 239 mg/dL LDL Cholesterol Calculated 100(H) <100 mg/dL [facility] Comment:Desirable LDL: less than 100 mg/dLNear Optimal/Above Optimal LDL: 110- 129 mg/dLBorderline High LDL: 130-159 mg/dLHigh LDL: 160-189 mg/dLVery High LDL: greater than or equal to 190 mg/dL HDL Cholesterol 37(L) >40 mg/dL [facility] Comment:Desirable HDL: great er than 40 mg/dL Note: This HDL assay may give artificially low results in patients with liver disease. Blood Venous blood specimen / Unknown 01/14/2024 9:41 AM EDT 01/14/2024 11:15 AM EDT us Carlene Quintana MD LAB BLOOD ORDERABLES Final Result Performing Organization Address [facility]/ZIP Co de Phone Number [facility] [address] [place] [address] [phone] * HPV mRNA E6/E7 w/Reflex to HPV Genotypes 16, 18/45 (08/31/2022 11:22 AM EDT) HPV nRNA E6/E7 Not Detected Not Detected [facility] Comment:Methodology: Transcr iption-Mediated AmplificationThis assay detects E6/E7 viral messenger RNA (mRNA) from 14high-risk HPV types (16,18,31,33,35,39,45,51,52,56,58,59,66,68).Cervical sources are required for HPV testing.If a vaginal source from a patient who has had atotal hysterectomy with removal of cervix wassubmitted, please contact the testing laboratoryfor alternative testing options.For additional information, please refer tohttp://education.Innovectra/faq/DMY321h9(This link if provided for information/educational purposes only.)THIS TEST WAS PERFORMED AT:[facility] [place] [phone] ESCOBAR MD HPV mRNA E6/E7 [facility] HPV 16 [facility] HPV 18/45 RNA [facility] 08/31/2022 11:2 2 AM EDT 09/01/2022 8:00 AM EDT [facility] CYT OLOGY ORDERABLES Final Result [facility] [address] [place] [phone] * Pap Smear (08/31/2022 11:22 AM EDT) 08/31/2022 11:2 2 AM EDT 09/01/2022 8:00 AM EDT Narrative [facility] - 09/29/2022 3:44 PM EDT ----- ------- Name: Rika Nevarez Age/Sex: 56/F : 1965 Unit#: [id number] Attend Dr: Jonathon Landers MD Re08/31/22 Status: [facility] REF Location: [facility] Disch: ----- ------- SPEC : [id number] RECD: 09/01/22 STATUS: ISAC THOMPSON NUM: [id number] DAMION: 08/31/22-1121 [facility] DR: Jonathon Landers MD ENTERED: 09/01/22 SP TYPE: Pap Smr OT DR: Carlene Aggarwal MD ORDERED: Pap Smear Interpretation Satisfactory for evaluation. Negative for intraepithelial lesion or malignancy. HPV mRNA E6/E7: NOT DETECTED This assay detects E6/E7 viral messenger RNA (mRNA) from 14 high-risk HPV types (16, 18, 31, 33, 35, 39, 45, 51, 52, 56, 58, 59, 66, 68) HPV testing performed by [employer], [place], [place]. See reference laboratory portion of the EMR for entire report. Clinical Information LMP: No menses Previous PAP test: 2018, ASCUS Material Received ThinPrep-Cervical Copies To: Carlene Aggarwal MD [address] [place] [id number] Jonathon Landers MD [address] [place], [place] [address] [address] [address] ----- ------- Signed (signature on file) Archana Camarena 09/29/22 1544 ----- ------- END OF REPORT [facility] External [facility] LAB [facility] ORDERABLES Final Result [facility] [address] [place] [phone] * Mammography (09/29/2021) Mammogram performed Anatomical Region Laterality Modality Other Historical Provider HEALTH MAINTENANCE Final Result * Colonoscopy (02/27/2017) Colonoscopy performed Historical Provider HEALTH MAINTENANCE Final Result from Last 3 Months or Most Recently Relevant to Health Maintenance Insurance [employer] C3 Care Teams Marble Carver Relationship Specialty Start Date End Date Carlene Aggarwal MD [address] [place] [phone] PCP - General Family Medicine 12/28/17 Sury Benoit Transportation EngineerPatient Attendant 07/03/23
== END 2024-12-04 15:06 | disposition home or self-care (01) ==
LOC: HO.MAMMO 15:05
PROVIDERS: PCP Internal Medicine; Visit Provider Internal Medicine
DX: Z12.31 Encounter for screening mammogram for malignant neoplasm of breast (principal)
CPT/HCPCS: 77063; 77067

== ENCOUNTER → 2024-12-04 15:30 | Outpatient (BNV) | payer MEDICAID, SELFPAY | PROVIDERS: PCP Internal Medicine; Visit Provider Internal Medicine | DX: Z12.31 Encounter for screening mammogram for malignant neoplasm of breast (principal) | CPT/HCPCS: 77063; 77067 ==